=== PATIENT | male | born 1940 | race Caucasian/White ===

== ENCOUNTER 2023-07-02 08:10 | Emergency (ER) | payer MEDICARE, OTHER, SELFPAY ==
[2023-07-02 08:34] VITALS: BP 132/74; PULSE 64; RESP 16; TEMP 36.1; O2SAT 98; BMI 26.3
[2023-07-02 08:59] VITALS: BP 124/79; PULSE 96; RESP 16; O2SAT 95
--- NOTE | 2023-07-02 09:03 | CRLHL7_ITS ---
For Patients: As a result of the Century Cures Act, medical imaging exams and procedure reports are released immediately into your electronic medical record. You may view this report before your referring provider. If you have questions, please contact your health care provider. INDICATION: COUGH HISTORY: Cough. COMPARISON: 01/03/2020. TECHNIQUE: Chest one-view portable. FINDINGS: There is a left subclavian transvenous pacemaker implant. Leads are continuous and stable. The heart size and pulmonary vasculature are normal. There is no acute airspace disease or pneumothorax. The central airway is normal. The osseous structures are intact. IMPRESSION: There is no acute airspace disease or significant change. Dictated by Brian Lobo MD @ 07/02/2023 9:38:23 AM Dictated by: Brian Lobo MD @ 07/02/2023 09:38:29 (Electronically Signed)
--- NOTE | 2023-07-02 09:06 | ED_ITS ---
HPI - General Adult General Chief complaint: Cough Stated complaint: cough, tight chest Time Seen by Provider: 07/02/23 08:21 History of Present Illness HPI narrative: Patient is a 83 white male with Alzheimer's disease, has a pacemaker, and has blood pressure issues per his . He and his were here for dry cough and body aches. Dinesh reports that he has had a runny nose and a cough. His cough is nonproductive. He denies any chest pain or other symptoms. He is not short of breath. His O2 sat is 90-95% on room air. He is afebrile. His does not know his medications all those he ceased states he is on ?many?. Related Data Allergies Allergy/AdvReac Type Severity Reaction Status Date / Time adhesive tape Allergy Blister Verified 07/02/23 09:35 diatrizoate meglumine Allergy angioedema Verified 07/02/23 09:35 venom-wasp Allergy Hives Verified 07/02/23 09:35 Beta-Blockers AdvReac Cough Verified 07/02/23 09:35 (Beta-Adrenergic Bloc digoxin AdvReac bipolar Verified 07/02/23 09:35 donepezil [From Aricept] AdvReac confusion Verified 07/02/23 09:35 lisinopril AdvReac Cough Verified 07/02/23 09:35 losartan [From Cozaar] AdvReac Verified 07/02/23 09:35 terazosin AdvReac Dizziness Verified 07/02/23 09:35 Review of Systems Status of ROS: Reports: 6 or more systems reviewed and unremarkable except as noted in History and below PFSH PFSH Social History Smoking Status: Former smoker How often do you have a drink containing alcohol: never AUDIT-C Alcohol total score: 0 Non-prescribed substance use: denies use Exam Narrative: Exam Narrative: Objective: Vital signs look largely unremarkable and within normal limits He is alert and oriented to person, not to place or time, the patient is very pleasant, noncyanotic HEENT is unremarkable Chest is clear no rales or wheezing Pulses regular cage ectopic beat Extremities good perfusion, neurologic nonfocal Const: Vital Signs, click to edit/add: Vital Signs - 24 hr 07/02/23 08:34 07/02/23 08:59 Temperature 97.0 F L Pulse Rate [Left P ulse Oximeter] 64 96 Respiratory Rate 16 16 Blood Pressure [Ri ght Upper Arm] 132/74 124/79 Pulse Oximetry 98 95 Oxygen Delivery Me thod Room Air Room Air Course Vital Signs Vital signs: Initial Vital Signs Temperature 97.0 F L 07/02/23 08:34 Temperature Source Temporal Artery Scan 07/02/23 08:34 Pulse Rate 64 07/02/23 08:34 Respiratory Rate 16 07/02/23 08:34 Blood Pressure 132/74 07/02/23 08:34 Blood Pressure Mean 93 07/02/23 08:34 Blood Pressure Position Sitting 07/02/23 08:34 Pulse Oximetry 98 07/02/23 08:34 Oxygen Delivery Method Room Air 07/02/23 08:34 Vital Signs Temperature 97.0 F L 07/02/23 08:34 Pulse Rate 64 07/02/23 08:34 Respiratory Rate 16 07/02/23 08:34 Blood Pressure 132/74 07/02/23 08:34 Pulse Oximetry 98 07/02/23 08:34 Oxygen Delivery Method Room Air 07/02/23 08:34 Temperature 97.0 F L 07/02/23 08:34 Pulse Rate 96 07/02/23 08:59 Respiratory Rate 16 07/02/23 08:59 Blood Pressure 124/79 07/02/23 08:59 Pulse Oximetry 95 07/02/23 08:59 Oxygen Delivery Method Room Air 07/02/23 08:59 Medical Decision Making MDM Narrative Medical decision making narrative: 83-year-old male with history of dementia who has a runny nose and cough, similar to his . He will get a COVID/influenza/RSV test. Will get a chest x-ray. Disposition pending findings. He does not appear febrile or toxic or hypoxic at this point. Addendum 9:24 a.m.: The patient has viral studies are negative, his chest x-ray by my read looks unremarkable. I think observation rest in time would be appropriate at this time. Update regular doctor next couple of days, return to ED sooner as needed problems or concerns. Suspect viral some syndrome similar to his and treatment as above Lab Data Labs: Lab Results 07/02/23 Range/Units 08:30 SARS-CoV-2 (PCR) Negative SARS-CoV-2 (Negative) Influenza Type A (PCR) Negative PCR FLU A (Negative) Influenza Type B (PCR) Negative PCR FLU B (Negative) RSV (PCR) Negative PCR RSV (Negative) Discharge Plan Discharge Clinical Impression: Cough Patient Disposition: Home w/ Parent or Adult Condition: Stable Additional Instructions: Light activity, fluids, Tylenol if needed, update regular doctor in couple of days not improving. Activity Level: Light activity Discharge Diet: Regular Follow Up/Referrals: Geeta Manning MD [Primary Care Provider] - Stand Alone Forms: [employer] [facility] Info Instructions
[2023-07-02 09:12] LABS: PCR FLU A Negative PCR FLU A (Negative); PCR FLU B Negative PCR FLU B (Negative); PCR RSV Negative PCR RSV (Negative)
[2023-07-02 09:17] LABS: SARS PCR* Negative SARS-CoV-2 (Negative)
== END 2023-07-02 09:35 | disposition home or self-care (01) ==
PROVIDERS: Emergency Provider Family Medicine; PCP Family Medicine
DX: R05.9 Cough, unspecified (principal)
CPT/HCPCS: 71045; 87631; 99283; 99284

== ENCOUNTER 2023-07-05 12:41 | Emergency (ER) | payer MEDICARE, OTHER, SELFPAY ==
[2023-07-05 12:58] VITALS: BP 104/60; PULSE 98; TEMP 36.2; O2SAT 97; BMI 27.7
--- NOTE | 2023-07-05 14:51 | CRLHL7_ITS ---
For Patients: As a result of the Cures Act, medical imaging exams and procedure reports are released immediately into your electronic medical record. You may view this report before your referring provider. If you have questions, please contact your health care provider. Indication: Cough, COVID infection Technique: Chest 1 view Comparison: Chest x-ray 07/02/2023 Findings/Impression: Cardiovascular and mediastinum: Normal heart size with left-sided pacemaker. Aortic tortuosity with atherosclerotic calcification. Lungs and pleural space: Lungs are clear. No sign of infiltrate or mass. No sign of pleural effusion. No pneumothorax. Bones and soft tissues: No acute findings. Dictated by Agus Grimaldo MD @ 07/05/2023 3:41:19 PM (Electronically Signed)
--- NOTE | 2023-07-05 15:15 | ED.GENADULT ---
HPI - General Adult General Date Seen: 07/05/23 Chief complaint: Cough Stated complaint: evaluation for trouble breathing, covid + Time Seen by Provider: 07/05/23 14:29 Source: patient and family Mode of arrival: ambulatory Limitations: no limitations History of Present Illness HPI narrative: Patient is an 83-year-old male here with his . He has underlying Alzheimer's dementia. He has had a cough for few days, he and his actually were both seconds seen 2 days ago, he had a negative COVID at that time and a negative chest x-ray. Since then cough has worsened and he had a positive COVID today. His was positive for COVID as well and she is feeling improved he has not had a fever, has not had chest pain nor is he felt short of breath, but is very frustrated by the coughing. He is eating and drinking fine. Lives at home with his . He has not smoked for 40+ years. Related Data Previous Rx's Medication Instructions Recorded benzonatate 200 mg capsule 200 mg PO BID PRN cough #10 caps 07/05/23 Allergies Allergy/AdvReac Type Severity Reaction Status Date / Time adhesive tape Allergy Blister Verified 07/02/23 09:35 diatrizoate meglumine Allergy angioedema Verified 07/02/23 09:35 venom-wasp Allergy Hives Verified 07/02/23 09:35 Beta-Blockers AdvReac Cough Verified 07/02/23 09:35 (Beta-Adrenergic Bloc digoxin AdvReac bipolar Verified 07/02/23 09:35 donepezil [From Aricept] AdvReac confusion Verified 07/02/23 09:35 lisinopril AdvReac Cough Verified 07/02/23 09:35 losartan [From Cozaar] AdvReac Verified 07/02/23 09:35 terazosin AdvReac Dizziness Verified 07/02/23 09:35 Review of Systems Status of ROS: Reports: 6 or more systems reviewed and unremarkable except as noted in History and below [facility] Social History Smoking Status: Former smoker How often do you have a drink containing alcohol: never AUDIT-C Alcohol total score: 0 Non-prescribed substance use: denies use service: No Exam Narrative: Exam Narrative: Vital signs as noted above. In general, an alert, nontoxic elderly male. Breathing without difficulty. Head: Normocephalic, atraumatic. Eyes: Pupils are equal reactive. Extraocular movements are full. Conjunctivae are normal. ENT: Mucous membranes are moist. Neck: Supple without lymphadenopathy. Heart: Regular rate and rhythm. No murmur or rub. Lungs: Clear bilaterally. No increased work of breathing, crackles or wheezes. Abdomen: Soft and nontender. No organomegaly. Extremities: Well perfused. No edema. No calf tenderness. Pulses intact. Neurologic: Patient is alert and oriented to person. Speech is fluent. Face is symmetric. Moves all extremities equally. Affect: Normal. Skin: Warm and dry. Well perfused. Const: Vital Signs, click to edit/add: Vital Signs - 24 hr 07/05/23 12:58 07/05/23 15:22 Temperature 97.2 F L Pulse Rate [Pulse Oximeter] 98 60 Respiratory Rate 20 Blood Pressure [Ri ght Forearm] 104/60 158/85 H Pulse Oximetry 97 97 Oxygen Delivery Me thod Room Air Room Air Documenting provider has reviewed patient's vital signs: yes Course Course ED Course: Will repeat a chest x-ray today to evaluate for possible intermittent development of pneumonia, check some basic labs. I am not rechecking a COVID here as it was positive at home. His O2 sats are good, he is not showing any significant difficulty breathing here. Reviewed with them that I probably will not have a quick fix for this symptom of cough with COVID. His is not taking Paxlovid secondary to medication interactions and she says that she has been told that he has medications which preclude Paxlovid as well, although she is not sure what medications he takes. She just says he is on ?a lot. Chest x-ray here is negative by my review, final radiology read is negative. White blood cell count is 7, CRP minimally elevated at 1.4 and metabolic panel looks good. Discussed with them at this time he seems to be having mostly just symptoms of COVID with normal O2 sats. Would anticipate these to continue for week or two, but if he is having worsening difficulties with weakness or shortness of breath, return to the emergency department at any time. Vital Signs Vital signs: Initial Vital Signs Temperature 97.2 F L 07/05/23 12:58 Temperature Source Temporal Artery Scan 07/05/23 12:58 Pulse Rate 98 07/05/23 12:58 Pulse Rhythm Regular 07/05/23 12:58 Blood Pressure 104/60 07/05/23 12:58 Blood Pressure Mean 74 07/05/23 12:58 Blood Pressure Position Sitting 07/05/23 12:58 Pulse Oximetry 97 07/05/23 12:58 Oxygen Delivery Method Room Air 07/05/23 12:58 Vital Signs Temperature 97.2 F L 07/05/23 12:58 Pulse Rate 98 07/05/23 12:58 Blood Pressure 104/60 07/05/23 12:58 Pulse Oximetry 97 07/05/23 12:58 Oxygen Delivery Method Room Air 07/05/23 12:58 Temperature 97.2 F L 07/05/23 12:58 Pulse Rate 60 07/05/23 15:22 Respiratory Rate 20 07/05/23 15:22 Blood Pressure 158/85 H 07/05/23 15:22 Pulse Oximetry 97 07/05/23 15:22 Oxygen Delivery Method Room Air 07/05/23 15:22 Medical Decision Making Lab Data Labs: Lab Results 07/05/23 Range/Units 15:16 WBC 7.70 (4.50-11.00) K/uL RBC 4.22 L (4.30-5.90) m/uL Hgb 14.0 (13.5-17.5) gm/dL Hct 42.2 (37.0-53.0) % MCV 100 (80-100) fL MCH 33 (26-34) pg MCHC 33 (32-36) gm/dL RDW Coeff of Juliann 12.9 (11.5-15.5) % Plt Count 193 (140-440) K/uL Neut % (Auto) 74.3 H (42.0-72.0) % Lymph % (Auto) 12.2 L (20-44) % Garza % (Auto) 11.8 H (0.0-11.0) % Eos % (Auto) 1.3 (0.0-7.0) % Baso % (Auto) 0.1 (0.0-3.0) % Neut # (Auto) 5.70 (1.7-7.0) K/uL Lymph # (Auto) 0.90 (0.90-2.90) K/uL Garza # (Auto) 0.90 (0.00-0.90) K/UL Eos # (Auto) 0.10 (0.00-0.50) K/uL Baso # (Auto) 0.01 (0.00-0.30) K/uL Abs Immat Gran (auto) 0.02 (0.00-0.30) K/uL Imm/Tot Granulo (auto) 0.3 % Sodium 136 (135-149) mmol/L Potassium 4.2 (3.6-5.1) mmol/L Chloride 103 (96-114) mmol/L Carbon Dioxide 27 (20-32) mmol/L Anion Gap 6 L (7-15) mEq/L BUN 23 (7-30) mg/dL Creatinine 1.4 (0.5-1.5) mg/dL Estimated Creat Clear 43.60 Estimated GFR 49 ml/min Glucose 97 (60-115) mg/dL Calcium 9.4 (8.4-10.6) mg/dL C-Reactive Protein 1.4 H (0.5-1.0) mg/dL Discharge Plan Discharge Clinical Impression: COVID-19 Patient Disposition: Home, Self-Care Condition: Stable Instructions: COVID-19 (Coronavirus Disease 2019) (ED) Additional Instructions: Lloyd Dominguez if you like. COVID symptoms of cough, fatigue, aches, headache etcetera may last for up to a couple of weeks. You should gradually improved thereafter and if not please follow up with primary care. For worsening difficulty breathing or other acute changes, return to the emergency department. Prescriptions: New benzonatate 200 mg capsule 200 mg PO BID PRN (Reason: cough) Qty: 10 0RF Follow Up/Referrals: Geeta Manning MD [Primary Care Provider] - Stand Alone Forms: [employer] Info Instructions
[2023-07-05 15:22] VITALS: BP 158/85; PULSE 60; RESP 20; O2SAT 97
[2023-07-05 15:26] LABS: Basophils Absolute Auto 0.01 K/uL (0.00-0.30); Basophils Percent Auto 0.1 % (0.0-3.0); Eosinophils Percent Auto 1.3 % (0.0-7.0); Hematocrit 42.2 % (37.0-53.0); Immature Granulocytes Abs Auto 0.02 K/uL (0.00-0.30); Immature Granulocytes Pct Auto 0.3 %; Lymphocytes Percent Auto 12.2 % (20-44); Mean Corpuscular HGB Conc 33 gm/dL (32-36); Mean Corpuscular Hemoglobin 33 pg (26-34); Mean Corpuscular Volume 100 fL (80-100); Monocytes Percent Auto 11.8 % (0.0-11.0); Neutrophils Percent Auto 74.3 % (42.0-72.0); Platelet Count* 193 K/uL (140-440); RDW Coefficient of Variation % 12.9 % (11.5-15.5); Red Blood Count 4.22 m/uL (4.30-5.90)
[2023-07-05 15:29] LABS: Chloride* 103 mmol/L (96-114); Potassium* 4.2 mmol/L (3.6-5.1); Sodium* 136 mmol/L (135-149)
[2023-07-05 15:32] LABS: Creatinine* 1.4 mg/dL (0.5-1.5); Estimated Glomerular Filt Rate 49 ml/min; Slide Review Reflex No
[2023-07-05 15:33] LABS: Anion Gap 6 mEq/L (7-15); Blood Urea Nitrogen* 23 mg/dL (7-30); Calcium* 9.4 mg/dL (8.4-10.6); Carbon Dioxide* 27 mmol/L (20-32); Glucose* 97 mg/dL (60-115)
[2023-07-05 15:36] LABS: C Reactive Protein* 1.4 mg/dL (0.5-1.0)
== END 2023-07-05 16:24 | disposition home or self-care (01) ==
PROVIDERS: Emergency Provider Emergency Medicine; PCP Family Medicine
DX: U07.1 COVID-19 (principal)
CPT/HCPCS: 36415; 71045; 80048; 85025; 86140; 99283; 99284

== ENCOUNTER 2023-11-28 10:15 | Emergency (ER) | payer MEDICARE, OTHER, SELFPAY ==
[2023-11-28 10:18] VITALS: BP 115/71; PULSE 98; RESP 18; TEMP 36.2; O2SAT 97; BMI 28.7
--- NOTE | 2023-11-28 10:43 | US_ITS ---
Patient: [facility] Facility:?[facility] Patient ID:?[id number] Site Patient ID:?[id number]. Site :?[id number] Study:?US-Extremity Left LEV-11/28/2023 12:15:47 PM Ordering Physician:BUSTER TAVERAS Final Report: INDICATION: Leg pain and swelling. TECHNIQUE: Ultrasound venous duplex lower left extremity. Compression venous exam was performed using lambert-scale, color Doppler, and spectral Doppler analysis. COMPARISON: None. FINDINGS: Deep veins: Sonographic imaging demonstrates the left common femoral, deep femoral, superficial femoral, popliteal, posterior tibial and the contralateral right common femoral veins to be fully compressible with normal color Doppler blood flow. Superficial veins: Superficial thrombophlebitis involving a short-segment of the greater saphenous vein, but extending throughout multiple varicosities from the mid thigh to the calf. No popliteal cyst. IMPRESSION: Superficial thrombophlebitis involving a short-segment of the greater saphenous vein, but extending throughout multiple varicosities from the mid thigh to the calf. No left lower extremity DVT. Dictated by Joe Huang MD @ 11/28/2023 12:22:55 PM Signed by:?Joe Huang MD @11/28/2023 12:22:55 PM (Electronic Signature)
--- NOTE | 2023-11-28 10:48 | ED.GENADULT ---
HPI - General Adult General Chief complaint: Lower Extremity Swelling Stated complaint: left ankle and foot swelling Time Seen by Provider: 11/28/23 10:34 Source: patient, family, RN notes reviewed and old records reviewed Mode of arrival: ambulatory Limitations: no limitations History of Present Illness HPI narrative: Patient is an 83-year-old male here with his for evaluation of some swelling of the left ankle. His says she noticed it on Tuesday, 3 days ago. He has not complained about it. Does have a little bit of underlying dementia. No injuries, no fevers, he is walking on it without difficulty. He is on amlodipine but she believes he has been on this for quite some time. No breathing difficulties or chest pain. Related Data Home Medications Medication Instructions Recorded Confirmed acetaminophen 650 mg 650 mg PO DAILY 11/28/23 11/28/23 tablet,extended release amlodipine 5 mg tablet 5 mg PO DAILY 11/28/23 11/28/23 aspirin 325 mg tablet,delayed 325 mg PO DAILY 11/28/23 11/28/23 release bupropion HCl 300 mg 24 hr tablet, 300 mg PO DAILY 11/28/23 11/28/23 extended release cholecalciferol (vitamin D3) 50 100 mcg PO DAILY 11/28/23 11/28/23 mcg (2,000 unit) capsule dipyridamole 50 mg tablet 50 mg PO BID 11/28/23 11/28/23 escitalopram oxalate 20 mg tablet 20 mg PO QAM 11/28/23 11/28/23 famotidine 20 mg tablet 20 mg PO BID 11/28/23 11/28/23 gabapentin 300 mg capsule 300 mg PO 11/28/23 memantine 10 mg tablet 10 mg PO BID 11/28/23 11/28/23 montelukast 10 mg tablet 10 mg PO QPM 11/28/23 11/28/23 omeprazole 40 mg capsule,delayed 40 mg PO DAILY 11/28/23 11/28/23 release primidone 50 mg tablet 50 mg PO QPM 11/28/23 11/28/23 simvastatin 40 mg tablet 40 mg PO QPM 11/28/23 11/28/23 tamsulosin 0.4 mg capsule 0.8 mg PO DAILY 11/28/23 11/28/23 Previous Rx's Medication Instructions Recorded benzonatate 200 mg capsule 200 mg PO BID PRN cough #10 caps 07/05/23 Allergies Allergy/AdvReac Type Severity Reaction Status Date / Time adhesive tape Allergy Blister Verified 11/28/23 10:24 diatrizoate meglumine Allergy angioedema Verified 11/28/23 10:24 venom-wasp Allergy Hives Verified 11/28/23 10:24 Beta-Blockers AdvReac Cough Verified 11/28/23 10:24 (Beta-Adrenergic Bloc digoxin AdvReac bipolar Verified 11/28/23 10:24 donepezil [From Aricept] AdvReac confusion Verified 11/28/23 10:24 lisinopril AdvReac Cough Verified 11/28/23 10:24 losartan [From Cozaar] AdvReac Verified 11/28/23 10:24 terazosin AdvReac Dizziness Verified 11/28/23 10:24 Review of Systems Status of ROS: Reports: 6 or more systems reviewed and unremarkable except as noted in History and below PFSH PFS Social History Smoking Status: Former smoker How often do you have a drink containing alcohol: never How often do you have six or more drinks on one occasion: Never AUDIT-C Alcohol total score: 0 Non-prescribed substance use: denies use service: No Exam Narrative: Exam Narrative: Vital signs reviewed In general, alert, well-appearing elderly male. Heart: Regular rate and rhythm. Lungs: Clear to auscultation. Extremities: The right lower extremity is normal. On the left, he has a little bit of swelling around the ankle. There is no erythema or warmth. He has full range of motion of the ankle joint without pain. 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 No calf tenderness or swelling. Const: Vital Signs, click to edit/add: Vital Signs - 24 hr 11/28/23 10:18 Temperature 97.2 F L Pulse Rate [Pulse Oximeter] 98 Respiratory Rate 18 Blood Pressure [Ri ght Upper Arm] 115/71 Pulse Oximetry 97 Oxygen Delivery Me thod Room Air Documenting provider has reviewed patient's vital signs: yes Course Course ED Course: Patient presents with mild swelling of the left ankle to a small degree into the dorsum of the foot without history of injury or pain. No erythema or warmth to suggest cellulitis or arthritis. Evaluation here showed normal lab work, ultrasound shows superficial thrombophlebitis involving a short segment of the GSV at the ankle, they note superficial clot in multiple varicosities from mid thigh to the calf. There is no significant proximity noted to the deep system. We discussed conservative measures for this, elevation, compression, Tylenol if needed, ice and/or heat. Discussed reasons to return such as significant increased swelling throughout the leg, or development of pain or swelling more proximally. Follow-up with primary care if needed. Vital Signs Vital signs: Initial Vital Signs Temperature 97.2 F L 11/28/23 10:18 Temperature Source Temporal Artery Scan 11/28/23 10:18 Pulse Rate 98 11/28/23 10:18 Respiratory Rate 18 11/28/23 10:18 Blood Pressure 115/71 11/28/23 10:18 Blood Pressure Mean 85 11/28/23 10:18 Blood Pressure Position Sitting 11/28/23 10:18 Pulse Oximetry 97 11/28/23 10:18 Oxygen Delivery Method Room Air 11/28/23 10:18 Vital Signs Temperature 97.2 F L 11/28/23 10:18 Pulse Rate 98 11/28/23 10:18 Respiratory Rate 18 11/28/23 10:18 Blood Pressure 115/71 11/28/23 10:18 Pulse Oximetry 97 11/28/23 10:18 Oxygen Delivery Method Room Air 11/28/23 10:18 Temperature 97.2 F L 11/28/23 10:18 Pulse Rate 98 11/28/23 10:18 Respiratory Rate 18 11/28/23 10:18 Blood Pressure 115/71 11/28/23 10:18 Pulse Oximetry 97 11/28/23 10:18 Oxygen Delivery Method Room Air 11/28/23 10:18 Medical Decision Making Lab Data Labs: Lab Results 11/28/23 Range/Units 11:09 WBC 5.58 (4.50-11.00) K/uL RBC 4.16 L (4.30-5.90) m/uL Hgb 13.8 (13.5-17.5) gm/dL Hct 42.0 (37.0-53.0) % MCV 101 H (80-100) fL MCH 33 (26-34) pg MCHC 33 (32-36) gm/dL RDW Coeff of Juliann 12.7 (11.5-15.5) % Plt Count 223 (140-440) K/uL Neut % (Auto) 69.5 (42.0-72.0) % Lymph % (Auto) 21.3 (20-44) % [place] % (Auto) 6.3 (0.0-11.0) % Eos % (Auto) 2.3 (0.0-7.0) % Baso % (Auto) 0.2 (0.0-3.0) % Neut # (Auto) 3.88 (1.7-7.0) K/uL Lymph # (Auto) 1.19 (0.90-2.90) K/uL [place] # (Auto) 0.40 (0.00-0.90) K/UL Eos # (Auto) 0.13 (0.00-0.50) K/uL Baso # (Auto) 0.01 (0.00-0.30) K/uL Abs Immat Gran (auto) 0.02 (0.00-0.30) K/uL Imm/Tot Granulo (auto) 0.4 % Sodium 138 (135-149) mmol/L Potassium 4.0 (3.6-5.1) mmol/L Chloride 107 (96-114) mmol/L Carbon Dioxide 26 (20-32) mmol/L Anion Gap 5 L (7-15) mEq/L BUN 26 (7-30) mg/dL Creatinine 1.3 (0.5-1.5) mg/dL Estimated Creat Clear 42.90 Estimated GFR 54 ml/min Glucose 138 H (60-115) mg/dL Calcium 9.5 (8.4-10.6) mg/dL Total Bilirubin 0.4 (0.1-1.5) mg/dL Direct Bilirubin 0.1 (0.0-0.5) mg/dL AST 25 (12-35) U/L ALT 12 (4-50) U/L Alkaline Phosphatase 46 (40-150) U/L NT-Pro-B Natriuret Pep 205 pg/mL Total Protein 6.6 (6.0-8.3) g/dL Albumin 3.8 (3.3-5.0) g/dL Discharge Plan Discharge Clinical Impression: Superficial thrombophlebitis Patient Disposition: Home, Self-Care Condition: Stable Instructions: Superficial Thrombophlebitis (ED) Additional Instructions: Okay to use Tylenol if needed for discomfort. Warm or cool compresses may be helpful. Compression with a compression sock is recommended if able. Elevate when possible. For significant increased swelling, redness, pain etcetera, should be seen again. Prescriptions: No Action benzonatate 200 mg capsule 200 mg PO BID PRN (Reason: cough) Qty: 10 0RF acetaminophen 650 mg tablet extended release 650 mg PO DAILY famotidine 20 mg tablet 20 mg PO BID aspirin 325 mg tablet,delayed release (DR/EC) 325 mg PO DAILY gabapentin 300 mg capsule 300 mg PO Patient Comments: one capsule y mouth every morning and noon, 2 caps at HS dipyridamole 50 mg tablet 50 mg PO BID escitalopram oxalate 20 mg tablet 20 mg PO QAM bupropion HCl 300 mg tablet extended release 24 hr 300 mg PO DAILY memantine 10 mg tablet 10 mg PO BID cholecalciferol (vitamin D3) 50 mcg (2,000 unit) capsule 100 mcg PO DAILY primidone 50 mg tablet 50 mg PO QPM amlodipine 5 mg tablet 5 mg PO DAILY omeprazole 40 mg capsule,delayed release(DR/EC) 40 mg PO DAILY simvastatin 40 mg tablet 40 mg PO QPM tamsulosin 0.4 mg capsule 0.8 mg PO DAILY montelukast 10 mg tablet 10 mg PO QPM Follow Up/Referrals: Geeta Manning MD [Primary Care Provider] - Stand Alone Forms: [employer] Info Instructions
[2023-11-28 11:18] LABS: Basophils Absolute Auto 0.01 K/uL (0.00-0.30); Basophils Percent Auto 0.2 % (0.0-3.0); Eosinophils Absolute Auto 0.13 K/uL (0.00-0.50); Eosinophils Percent Auto 2.3 % (0.0-7.0); Hemoglobin* 13.8 gm/dL (13.5-17.5); Immature Granulocytes Abs Auto 0.02 K/uL (0.00-0.30); Immature Granulocytes Pct Auto 0.4 %; Lymphocytes Absolute Auto 1.19 K/uL (0.90-2.90); Lymphocytes Percent Auto 21.3 % (20-44); Mean Corpuscular HGB Conc 33 gm/dL (32-36); Mean Corpuscular Hemoglobin 33 pg (26-34); Mean Corpuscular Volume 101 fL (80-100); Monocytes Percent Auto 6.3 % (0.0-11.0); Neutrophils Absolute Auto 3.88 K/uL (1.7-7.0); Neutrophils Percent Auto 69.5 % (42.0-72.0); Platelet Count* 223 K/uL (140-440); RDW Coefficient of Variation % 12.7 % (11.5-15.5); Red Blood Count 4.16 m/uL (4.30-5.90); White Blood Count* 5.58 K/uL (4.50-11.00)
[2023-11-28 11:22] LABS: Slide Review Reflex No
[2023-11-28 11:40] LABS: Albumin* 3.8 g/dL (3.3-5.0); Chloride* 107 mmol/L (96-114); Sodium* 138 mmol/L (135-149)
[2023-11-28 11:42] LABS: Anion Gap 5 mEq/L (7-15); Carbon Dioxide* 26 mmol/L (20-32); Creatinine* 1.3 mg/dL (0.5-1.5); Estimated Glomerular Filt Rate 54 ml/min
[2023-11-28 11:43] LABS: Alanine Aminotransferase* 12 U/L (4-50); Alkaline Phosphatase* 46 U/L (40-150); Aspartate Amino Transferase* 25 U/L (12-35); Bilirubin Direct* 0.1 mg/dL (0.0-0.5); Bilirubin Total* 0.4 mg/dL (0.1-1.5); Blood Urea Nitrogen* 26 mg/dL (7-30); Calcium* 9.5 mg/dL (8.4-10.6); Glucose* 138 mg/dL (60-115); Total Protein* 6.6 g/dL (6.0-8.3)
[2023-11-28 11:56] LABS: NT Pro B Type NatriureticPept* 205 pg/mL
== END 2023-11-28 12:27 | disposition home or self-care (01) ==
PROVIDERS: Emergency Provider Emergency Medicine; PCP Family Medicine
DX: I80.03 Phlebitis and thrombophlebitis of superficial vessels of lower extremities, bilateral (principal)
CPT/HCPCS: 36415; 80048; 80076; 83880; 85025; 93971; 99284

== ENCOUNTER 2024-01-19 09:05 | Outpatient (CLI) | payer MEDICARE, OTHER, SELFPAY | END 2024-01-19 09:06 | disposition home or self-care (01) | LOC: AMB 01-24 14:03 | PROVIDERS: PCP Family Medicine; Visit Provider Family Medicine | DX: S09.90XA Unspecified injury of head, initial encounter (principal); S19.9XXA Unspecified injury of neck, initial encounter; W16.212A Fall in (into) filled bathtub causing other injury, initial encounter; Y93.E1 Activity, personal bathing and showering; Y92.031 Bathroom in apartment as the place of occurrence of the external cause | CPT/HCPCS: A0425; A0427 ==

== ENCOUNTER 2024-01-19 09:37 | Emergency (ER) | payer MEDICARE, OTHER, SELFPAY ==
[2024-01-19] VITALS (11 sets, daily range): BP systolic 142–165; BP diastolic 83–92; PULSE 60–64; RESP 18; TEMP 36.5; O2SAT 95–97; BMI 30.9
--- NOTE | 2024-01-19 09:40 | ED.GENADULT ---
HPI - General Adult General Time Seen by Provider: 09:40 Date Seen: 01/19/24 Chief complaint: Neck Injury/Pain Stated complaint: Fall Time Seen by Provider: 01/19/24 09:39 Source: patient and EMS Mode of arrival: EMS Limitations: other (Has dementia but is reported to be at his baseline per at seen from EMS.) History of Present Illness HPI narrative: This 83-year-old male is brought in by EMS for complaint of neck pain after a fall. Patient has baseline dementia, resides with his across the street at [facility]. He was showering, his heard him fall, he was on his hands and knees when she went in to him. There reportedly is no loss of consciousness. He was at his baseline mental status per his . He does not know time and current events but was grounded to questions that he would normally know such as the son's name, where he was that, his 's name. EMS did have to alter their questioning to ensure he was at his baseline mental status. His felt that he was. He denies any chest pain, no shortness of breath. He feels he slipped in the shower. On the scene, was complaining of neck pain, neck pain was his only complaint. He denies any pain going into his arms at this time. He did have a superficial abrasion on the upper forehead. EMS applied cervical spine immobilization, did start an IV and give him 50 mcg IV fentanyl. His blood sugar was 115. His is not here but is reportedly coming. Patient at this time is denying any discomfort, feels the fentanyl did help. Patient is noted to have a pacemaker. Related Data Home Medications ?Medication ?Instructions ?Recorded ?Confirmed acetaminophen 650 mg 650 mg PO DAILY 11/28/23 01/19/24 tablet,extended release amlodipine 5 mg tablet 5 mg PO DAILY 11/28/23 01/19/24 aspirin 325 mg tablet,delayed 325 mg PO DAILY 11/28/23 01/19/24 release bupropion HCl 300 mg 24 hr tablet, 300 mg PO DAILY 11/28/23 01/19/24 extended release cholecalciferol (vitamin D3) 50 100 mcg PO DAILY 11/28/23 01/19/24 mcg (2,000 unit) capsule dipyridamole 50 mg tablet 50 mg PO BID 11/28/23 01/19/24 escitalopram oxalate 20 mg tablet 20 mg PO QAM 11/28/23 01/19/24 famotidine 20 mg tablet 20 mg PO BID 11/28/23 01/19/24 gabapentin 300 mg capsule 300 mg PO 11/28/23 memantine 10 mg tablet 10 mg PO BID 11/28/23 01/19/24 montelukast 10 mg tablet 10 mg PO QPM 11/28/23 01/19/24 omeprazole 40 mg capsule,delayed 40 mg PO DAILY 11/28/23 01/19/24 release primidone 50 mg tablet 50 mg PO QPM 11/28/23 01/19/24 simvastatin 40 mg tablet 40 mg PO QPM 11/28/23 01/19/24 tamsulosin 0.4 mg capsule 0.8 mg PO DAILY 11/28/23 01/19/24 Previous Rx's ?Medication ?Instructions ?Recorded benzonatate 200 mg capsule 200 mg PO BID PRN cough #10 caps 07/05/23 Allergies Allergy/AdvReac Type Severity Reaction Status Date / Time adhesive tape Allergy Blister Verified 11/28/23 10:24 diatrizoate meglumine Allergy angioedema Verified 11/28/23 10:24 venom-wasp Allergy Hives Verified 11/28/23 10:24 Beta-Blockers AdvReac Cough Verified 11/28/23 10:24 (Beta-Adrenergic Bloc digoxin AdvReac bipolar Verified 11/28/23 10:24 donepezil [From Aricept] AdvReac confusion Verified 11/28/23 10:24 lisinopril AdvReac Cough Verified 11/28/23 10:24 losartan [From Cozaar] AdvReac Verified 11/28/23 10:24 terazosin AdvReac Dizziness Verified 11/28/23 10:24 Review of Systems Status of ROS: Reports: 6 or more systems reviewed and unremarkable except as noted in History and below [facility] Social History Smoking Status: Former smoker How often do you have a drink containing alcohol: never How often do you have six or more drinks on one occasion: Never AUDIT-C Alcohol total score: 0 Non-prescribed substance use: denies use service: No Exam Const: Vital Signs, click to edit/add: Vital Signs - 24 hr 01/19/24 09:41 01/19/24 10:12 01/19/24 10:13 Temperature 97.7 F Pulse Rate 64 Pulse Rate [Pulse Oximeter] 64 Respiratory Rate 18 Blood Pressure Blood Pressure [Le ft Upper Arm] 165/92 H Pulse Oximetry 95 95 95 Oxygen Delivery Me thod Room Air 01/19/24 10:19 01/19/24 10:30 01/19/24 10:32 Temperature Pulse Rate 61 60 60 Pulse Rate [Pulse Oximeter] Respiratory Rate Blood Pressure 155/85 H 161/89 H Blood Pressure [Le ft Upper Arm] Pulse Oximetry 97 95 96 Oxygen Delivery Me thod This patient is alert, interactive, no apparent distress. He is conversive, speech is normal. Pupils are smaller but equal, symmetric, conjugate gaze, sclera clear. He has small little abrasion or bruising developing over the bridge of his nose, no bleeding from the nares, no drainage from the nares, no step-off or complaint of pain when I palpate the nose. Face is otherwise atraumatic. Cannot see fully into his mouth at this time due to the C-collar being on but anterior dentition look normal, lips are normal. He has a central upper superficial abraded area on the top of his forehead. This is not actively bleeding and is very superficial. There is no step-off for swelling in this area. External ears normal, no drainage. When I do palpate his cervical spine through the back of the collar, does complain of pain more to the left paraspinal area on the mid to lower cervical spine. Thus, C-collar was left intact. No pain over clavicles or shoulders, can shrug shoulders. Can feel the pacemaker in his left chest wall. CV regular rate and rhythm. Lungs are clear, no wheezing or crackles. Abdomen is soft, no rebound or guarding, no organomegaly. Strength is 5/5 and symmetric in his upper extremities, note no traumatic changes of his arms or legs. Smallest superficial abraded area about dime-size overlying the right patellar, no knee joint point if you. Feet do seem to have some swelling. Neurovascular seems to be intact throughout his extremities at this time. Do note a little resting tremor in both of his hands, very mild. Documenting provider has reviewed patient's vital signs: yes Course Course ED Course: Will obtain imaging of his head and cervical spine to rule out acute traumatic change. Will have him on pulse oximetry and cardiac monitoring. Will confirm rhythm with EKG, obtain some baseline labs. Sounds like he simply slipped in the shower and fell. Will review the situation with his when she gets here as well. Reevaluation(s) Time of Reevaluation #1: 10:44 Reevaluation #1: Reviewed negative CT imaging for traumatic change. C-collar was removed. He has some stiffness but no concerning pain on range of motion. Still no radiculopathic features with pain into either arm. Did confirm with his who is now here that he slipped in the shower. Per his , there are bars and appropriate safety measures in the bathroom. Will obtain Tylenol for him, are awaiting some of his labs. Time of Reevaluation #2: 11:21 Reevaluation #2: Reviewed normal labs. Patient is feeling better, no increased complaints of pain, no new complaints. He will discharge to home with his . Vital Signs Vital signs: Initial Vital Signs Temperature 97.7 F 01/19/24 09:41 Temperature Source Temporal Artery Scan 01/19/24 09:41 Pulse Rate 64 01/19/24 09:41 Respiratory Rate 18 01/19/24 09:41 Blood Pressure 165/92 H 01/19/24 09:41 Blood Pressure Mean 116 H 01/19/24 09:41 Blood Pressure Position Supine 01/19/24 09:41 Pulse Oximetry 95 01/19/24 09:41 Oxygen Delivery Method Room Air 01/19/24 09:41 Vital Signs Temperature 97.7 F 01/19/24 09:41 Pulse Rate 64 01/19/24 09:41 Respiratory Rate 18 01/19/24 09:41 Blood Pressure 165/92 H 01/19/24 09:41 Pulse Oximetry 95 01/19/24 09:41 Oxygen Delivery Method Room Air 01/19/24 09:41 Temperature 97.7 F 01/19/24 09:41 Pulse Rate 60 01/19/24 10:32 Respiratory Rate 18 01/19/24 09:41 Blood Pressure 161/89 H 01/19/24 10:32 Pulse Oximetry 96 01/19/24 10:32 Oxygen Delivery Method Room Air 01/19/24 09:41 Medications Administered Medications: Discontinued Medications Generic Name Dose Route Start Last Admin Trade Name Tomas PRN Reason Stop Dose Admin Acetaminophen 1,000 mg 01/19/24 10:46 01/19/24 10:54 Acetaminophen 500 Mg Tablet PO 01/19/24 10:47 1,000 mg ONCE ONE Administration Medical Decision Making Lab Data Lab results reviewed: Yes I reviewed the patient's lab results Labs: Lab Results 01/19/24 Range/Units 10:12 WBC 5.61 (4.50-11.00) K/uL RBC 4.38 (4.30-5.90) m/uL Hgb 14.4 (13.5-17.5) gm/dL Hct 44.1 (37.0-53.0) % MCV 101 H (80-100) fL MCH 33 (26-34) pg MCHC 33 (32-36) gm/dL Plt Count 217 (140-440) K/uL Neut % (Auto) 68.3 (42.0-72.0) % Lymph % (Auto) 21.2 (20-44) % [place] % (Auto) 6.8 (0.0-11.0) % Eos % (Auto) 2.9 (0.0-7.0) % Baso % (Auto) 0.4 (0.0-3.0) % Neut # (Auto) 3.80 (1.7-7.0) K/uL Lymph # (Auto) 1.20 (0.90-2.90) K/uL [place] # (Auto) 0.40 (0.00-0.90) K/UL Eos # (Auto) 0.20 (0.00-0.50) K/uL Baso # (Auto) 0.00 (0.00-0.30) K/uL Abs Immat Gran (auto) 0.00 (0.00-0.30) K/uL Imm/Tot Granulo (auto) 0.4 % Sodium 139 (135-149) mmol/L Potassium 4.3 (3.6-5.1) mmol/L Chloride 109 (96-114) mmol/L Carbon Dioxide 25 (20-32) mmol/L Anion Gap 5 L (7-15) mEq/L BUN 30 (7-30) mg/dL Creatinine 1.2 (0.5-1.5) mg/dL Estimated Creat Clear 43.54 Estimated GFR 59 ml/min Glucose 91 (60-115) mg/dL Lactate 0.8 (0.5-1.9) mmol/L Calcium 9.4 (8.4-10.6) mg/dL Total Bilirubin 0.8 (0.1-1.5) mg/dL AST 30 (12-35) U/L ALT 12 (4-50) U/L Alkaline Phosphatase 45 (40-150) U/L Troponin I 0.02 (0.01-0.04) ng/mL NT-Pro-B Natriuret Pep 394 pg/mL Total Protein 7.2 (6.0-8.3) g/dL Albumin 4.3 (3.3-5.0) g/dL Imaging Data CT scan - head: Attestation: I have reviewed the pertinent imaging results. Radiologist's impression: Patient: [facility] Facility:?[facility] Patient ID:?[id number] Site Patient ID:?[id number]. Site :?[id number] Study:?CT-Head WITHOUT-01/19/2024 10:10:47 AM Ordering Physician:?Paula Stanton Final Report: Indication: Fall. Technique: Noncontrast CT of head was performed. Comparison: None available. Findings: Brain parenchyma: Normal lambert-white matter differentiation. Mild prominence of the convexity sulci and periventricular white matter hypodensities in keeping with chronic microvascular change and age related volume loss. No acute intraparenchymal hemorrhage. No mass effect or midline shift. Atherosclerotic intracranial calcifications. Extra-axial spaces: No extra-axial collection. Ventricular system: Unremarkable for age. Paranasal sinuses and mastoid air cells: Polyps versus mucous retention cysts within the maxillary sinuses. Otherwise clear. Orbits: Unremarkable. Bones: No calvarial fracture. Impression: 1. No acute intracranial abnormality identified. 2. Mild cerebral volume loss and findings suggestive of chronic small vessel ischemic change. Please note that all CT scans at this facility use dose modulation, iterative reconstruction, and/or weight-based dosing when appropriate to reduce radiation dose to as low as reasonably achievable. Dictated by Enma Gilmore MD @ 01/19/2024 10:21:14 AM (Electronic Signature) CT cervical spine: Attestation: I have reviewed the pertinent imaging results. Radiologist's impression: Patient: [facility] Facility:?[facility] Patient ID:?[id number] Site Patient ID:?[id number]. Site :?[id number] Study:?CT-Spine Cervical -01/19/2024 10:11:03 AM Ordering Physician:Damion Stanton Final Report: INDICATION: Trauma. TECHNIQUE: CT of the cervical spine without contrast. COMPARISON: None available. FINDINGS: Vertebral alignment: Straightening of the cervical lordosis without subluxation. Vertebrae: Vertebral body heights are maintained. No displaced fracture given limitations of osseous demineralization. Multilevel degenerative disc disease and facet arthropathy, which is most pronounced and severe at C5-C6. Extraspinal findings: Atherosclerotic carotid artery calcifications and vertebral artery calcifications. Posterior fossa is unremarkable. IMPRESSION: 1. No acute traumatic abnormality identified in the cervical spine. 2. Multilevel cervical spondylosis. Please note that all CT scans at this facility use dose modulation, iterative reconstruction, and/or weight-based dosing when appropriate to reduce radiation dose to as low as reasonably achievable. Dictated by Enma Gilmore MD @ 01/19/2024 10:24:53 AM (Electronic Signature) ECG Data Attestation: I personally reviewed and interpreted this ECG as follows: (Paced rhythm at 62 beats per minute.) Discharge Plan Discharge Clinical Impression: Acute neck pain Abrasion of head Qualifiers: Encounter type: initial encounter Qualified Code(s): S00.91XA - Abrasion of unspecified part of head, initial encounter Fall Qualifiers: Encounter type: initial encounter Qualified Code(s): W19.XXXA - Unspecified fall, initial encounter Patient Disposition: Home w/ Parent or Adult Condition: Stable Instructions: Fall Prevention for Older Adults (ED), Abrasion (ED), Neck Pain (ED) Additional Instructions: Tylenol 1000 mg up to 3 times a day as needed for pain. Can try ice or heat to his neck, use which makes him feel better if he has ongoing neck stiffness. Can use bacitracin to the abrasion on his head until healed. Can apply a small amount of bacitracin 3 to 4 times a day. If further concerns or ongoing complaints, follow up with primary care provider in clinic. Activity Level: Activity as Tolerated Prescriptions: No Action benzonatate 200 mg capsule 200 mg PO BID PRN (Reason: cough) Qty: 10 0RF acetaminophen 650 mg tablet extended release 650 mg PO DAILY famotidine 20 mg tablet 20 mg PO BID aspirin 325 mg tablet,delayed release (DR/EC) 325 mg PO DAILY gabapentin 300 mg capsule 300 mg PO Patient Comments: one capsule y mouth every morning and noon, 2 caps at HS dipyridamole 50 mg tablet 50 mg PO BID escitalopram oxalate 20 mg tablet 20 mg PO QAM bupropion HCl 300 mg tablet extended release 24 hr 300 mg PO DAILY memantine 10 mg tablet 10 mg PO BID cholecalciferol (vitamin D3) 50 mcg (2,000 unit) capsule 100 mcg PO DAILY primidone 50 mg tablet 50 mg PO QPM amlodipine 5 mg tablet 5 mg PO DAILY omeprazole 40 mg capsule,delayed release(DR/EC) 40 mg PO DAILY simvastatin 40 mg tablet 40 mg PO QPM tamsulosin 0.4 mg capsule 0.8 mg PO DAILY montelukast 10 mg tablet 10 mg PO QPM Follow Up/Referrals: Geeta Manning MD [Primary Care Provider] - Stand Alone Forms: [employer] Info Instructions
--- NOTE | 2024-01-19 09:41 | CRLHL7_ITS ---
For Patients: As a result of the Century Cures Act, medical imaging exams and procedure reports are released immediately into your electronic medical record. You may view this report before your referring provider. If you have questions, please contact your health care provider. Indication: Fall. Technique: Noncontrast CT of head was performed. Comparison: None available. Findings: Brain parenchyma: Normal lambert-white matter differentiation. Mild prominence of the convexity sulci and periventricular white matter hypodensities in keeping with chronic microvascular change and age related volume loss. No acute intraparenchymal hemorrhage. No mass effect or midline shift. Atherosclerotic intracranial calcifications. Extra-axial spaces: No extra-axial collection. Ventricular system: Unremarkable for age. Paranasal sinuses and mastoid air cells: Polyps versus mucous retention cysts within the maxillary sinuses. Otherwise clear. Orbits: Unremarkable. Bones: No calvarial fracture. Impression: 1. No acute intracranial abnormality identified. 2. Mild cerebral volume loss and findings suggestive of chronic small vessel ischemic change. Please note that all CT scans at this facility use dose modulation, iterative reconstruction, and/or weight-based dosing when appropriate to reduce radiation dose to as low as reasonably achievable. Dictated by Enma Gilmore MD @ 01/19/2024 10:21:14 AM (Electronically Signed)
--- NOTE | 2024-01-19 09:41 | CRLHL7_ITS ---
For Patients: As a result of the Century Cures Act, medical imaging exams and procedure reports are released immediately into your electronic medical record. You may view this report before your referring provider. If you have questions, please contact your health care provider. INDICATION: Trauma. TECHNIQUE: CT of the cervical spine without contrast. COMPARISON: None available. FINDINGS: Vertebral alignment: Straightening of the cervical lordosis without subluxation. Vertebrae: Vertebral body heights are maintained. No displaced fracture given limitations of osseous demineralization. Multilevel degenerative disc disease and facet arthropathy, which is most pronounced and severe at C5-C6. Extraspinal findings: Atherosclerotic carotid artery calcifications and vertebral artery calcifications. Posterior fossa is unremarkable. IMPRESSION: 1. No acute traumatic abnormality identified in the cervical spine. 2. Multilevel cervical spondylosis. Please note that all CT scans at this facility use dose modulation, iterative reconstruction, and/or weight-based dosing when appropriate to reduce radiation dose to as low as reasonably achievable. Dictated by Enma Gilmore MD @ 01/19/2024 10:24:53 AM (Electronically Signed)
[2024-01-19 10:19] LABS: Lactate* 0.8 mmol/L (0.5-1.9)
[2024-01-19 10:30] LABS: Red Blood Count 4.38 m/uL (4.30-5.90); White Blood Count* 5.61 K/uL (4.50-11.00)
[2024-01-19 10:31] LABS: Basophils Percent Auto 0.4 % (0.0-3.0); Eosinophils Percent Auto 2.9 % (0.0-7.0); Hematocrit 44.1 % (37.0-53.0); Hemoglobin* 14.4 gm/dL (13.5-17.5); Immature Granulocytes Pct Auto 0.4 %; Lymphocytes Percent Auto 21.2 % (20-44); Mean Corpuscular HGB Conc 33 gm/dL (32-36); Mean Corpuscular Hemoglobin 33 pg (26-34); Mean Corpuscular Volume 101 fL (80-100); Monocytes Percent Auto 6.8 % (0.0-11.0); Neutrophils Percent Auto 68.3 % (42.0-72.0); Platelet Count* 217 K/uL (140-440); Slide Review Reflex No
[2024-01-19 10:36] LABS: Albumin* 4.3 g/dL (3.3-5.0); Chloride* 109 mmol/L (96-114); Potassium* 4.3 mmol/L (3.6-5.1); Sodium* 139 mmol/L (135-149)
[2024-01-19 10:39] LABS: Alanine Aminotransferase* 12 U/L (4-50); Alkaline Phosphatase* 45 U/L (40-150); Anion Gap 5 mEq/L (7-15); Aspartate Amino Transferase* 30 U/L (12-35); Bilirubin Total* 0.8 mg/dL (0.1-1.5); Blood Urea Nitrogen* 30 mg/dL (7-30); Carbon Dioxide* 25 mmol/L (20-32); Creatinine* 1.2 mg/dL (0.5-1.5); Est. Creatinine Clearance* 43.54; Estimated Glomerular Filt Rate 59 ml/min; Glucose* 91 mg/dL (60-115); Total Protein* 7.2 g/dL (6.0-8.3)
[2024-01-19 10:40] LABS: Calcium* 9.4 mg/dL (8.4-10.6)
[2024-01-19 10:51] LABS: Troponin I* 0.02 ng/mL (0.01-0.04)
[2024-01-19] MEDS: ACETAMINOPHEN 500 MG TABLET 1000 MG PO (10:54)
[2024-01-19 11:01] LABS: NT Pro B Type NatriureticPept* 394 pg/mL
== END 2024-01-19 11:50 | disposition home or self-care (01) ==
PROVIDERS: Emergency Provider Family Medicine; PCP Family Medicine
DX: M54.2 Cervicalgia (principal); W19.XXXA Unspecified fall, initial encounter
CPT/HCPCS: 36415; 70450; 72125; 80053; 83605; 83880; 84484; 85025; 93005; 94761; 99284; 99285; A9270

== ENCOUNTER 2024-02-01 09:28 | Outpatient (CLI) | payer MEDICARE, OTHER, SELFPAY | END 2024-02-01 09:29 | disposition home or self-care (01) | LOC: AMB 02-04 20:23 | PROVIDERS: PCP Family Medicine; Visit Provider Family Medicine | DX: R53.1 Weakness (principal); F03.90 Unspecified dementia, unspecified severity, without behavioral disturbance, psychotic disturbance, mood disturbance, and anxiety | CPT/HCPCS: A0425; A0429 ==

== ENCOUNTER 2024-02-01 09:54 | Emergency (ER) | payer MEDICARE, OTHER, SELFPAY ==
[2024-02-01 09:56] VITALS: BP 135/84; PULSE 61; RESP 18; TEMP 36; O2SAT 95; BMI 435.3
[2024-02-01 10:00] VITALS: BP 135/84; PULSE 60; RESP 16; O2SAT 95
--- NOTE | 2024-02-01 10:20 | ED.GENADULT ---
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 He did not lose consciousness. He feels fine at this point. He is brought in by ambulance. He has had a series of 3 falls over 2 weeks, and it since he started metoprolol. It looks like his blood pressure couple of times was a little bit low on her home reading. He otherwise feels well, no fevers, no chills, he recently had a cardiology appointment a few weeks ago and started on metoprolol. He does have a cardiac pacemaker. He has had no chest pain or breathing problem. He does have dementia. They live together in the [facility] area. He was brought in by ambulance. He really has no complaints. Related Data Home Medications ?Medication ?Instructions ?Recorded ?Confirmed acetaminophen 650 mg 650 mg PO DAILY 11/28/23 01/19/24 tablet,extended release amlodipine 5 mg tablet 5 mg PO DAILY 11/28/23 01/19/24 aspirin 325 mg tablet,delayed 325 mg PO DAILY 11/28/23 01/19/24 release bupropion HCl 300 mg 24 hr tablet, 300 mg PO DAILY 11/28/23 01/19/24 extended release cholecalciferol (vitamin D3) 50 100 mcg PO DAILY 11/28/23 01/19/24 mcg (2,000 unit) capsule dipyridamole 50 mg tablet 50 mg PO BID 11/28/23 01/19/24 escitalopram oxalate 20 mg tablet 20 mg PO QAM 11/28/23 01/19/24 famotidine 20 mg tablet 20 mg PO BID 11/28/23 01/19/24 gabapentin 300 mg capsule 300 mg PO 11/28/23 memantine 10 mg tablet 10 mg PO BID 11/28/23 01/19/24 montelukast 10 mg tablet 10 mg PO QPM 11/28/23 01/19/24 omeprazole 40 mg capsule,delayed 40 mg PO DAILY 11/28/23 01/19/24 release primidone 50 mg tablet 50 mg PO QPM 11/28/23 01/19/24 simvastatin 40 mg tablet 40 mg PO QPM 11/28/23 01/19/24 tamsulosin 0.4 mg capsule 0.8 mg PO DAILY 11/28/23 01/19/24 Previous Rx's ?Medication ?Instructions ?Recorded benzonatate 200 mg capsule 200 mg PO BID PRN cough #10 caps 07/05/23 Allergies Allergy/AdvReac Type Severity Reaction Status Date / Time adhesive tape Allergy Blister Verified 11/28/23 10:24 diatrizoate meglumine Allergy angioedema Verified 11/28/23 10:24 venom-wasp Allergy Hives Verified 11/28/23 10:24 Beta-Blockers AdvReac Cough Verified 11/28/23 10:24 (Beta-Adrenergic Bloc digoxin AdvReac bipolar Verified 11/28/23 10:24 donepezil [From Aricept] AdvReac confusion Verified 11/28/23 10:24 lisinopril AdvReac Cough Verified 11/28/23 10:24 losartan [From Cozaar] AdvReac Verified 11/28/23 10:24 terazosin AdvReac Dizziness Verified 11/28/23 10:24 Review of Systems Status of ROS: Reports: 6 or more systems reviewed and unremarkable except as noted in History and below [facility] Social History Smoking Status: Former smoker How often do you have a drink containing alcohol: never How often do you have six or more drinks on one occasion: Never AUDIT-C Alcohol total score: 0 Non-prescribed substance use: denies use service: No Exam Narrative: Exam Narrative: Objective patient's vital signs look unremarkable his pulse is 60 O2 sat 95% on run room air Alert orient x3 No facial asymmetry Moves all extremities well, chest back neck abdomen pelvis upper lower extremities unremarkable, no pain to palpation, no bruising, no deformity Abdomen benign Periphery skin is warm and dry Const: Vital Signs, click to edit/add: Vital Signs - 24 hr 02/01/24 09:56 02/01/24 10:00 02/01/24 10:34 Temperature 96.8 F L Pulse Rate [Right Radial] 61 60 60 Respiratory Rate 18 16 16 Blood Pressure [Le ft Upper Arm] 135/84 135/84 129/79 Pulse Oximetry 95 95 95 Oxygen Delivery Me thod Room Air Room Air Room Air 06/05/24 10:45 02/01/24 11:05 Temperature 97.0 F L 97.0 F L Pulse Rate [Right Radial] 62 62 Respiratory Rate 16 18 Blood Pressure [Le ft Upper Arm] 112/77 112/77 Pulse Oximetry 95 Oxygen Delivery Me thod Room Air Course Vital Signs Vital signs: Initial Vital Signs Temperature 96.8 F L 02/01/24 09:56 Temperature Source Temporal Artery Scan 02/01/24 09:56 Pulse Rate 61 02/01/24 09:56 Pulse Rhythm Regular 02/01/24 09:56 Respiratory Rate 18 02/01/24 09:56 Blood Pressure 135/84 02/01/24 09:56 Blood Pressure Mean 101 02/01/24 09:56 Blood Pressure Position Supine 02/01/24 09:56 Pulse Oximetry 95 02/01/24 09:56 Oxygen Delivery Method Room Air 02/01/24 09:56 Vital Signs Temperature 96.8 F L 02/01/24 09:56 Pulse Rate 61 02/01/24 09:56 Respiratory Rate 18 02/01/24 09:56 Blood Pressure 135/84 02/01/24 09:56 Pulse Oximetry 95 02/01/24 09:56 Oxygen Delivery Method Room Air 02/01/24 09:56 Temperature 97.0 F L 02/01/24 11:05 Pulse Rate 62 02/01/24 11:05 Respiratory Rate 18 02/01/24 11:05 Blood Pressure 112/77 02/01/24 11:05 Pulse Oximetry 95 02/01/24 10:45 Oxygen Delivery Method Room Air 02/01/24 10:45 Medical Decision Making [facility] Narrative Medical decision making narrative: 83-year-old male with dementia living in [facility] independent living with his with a series of falls. She does have a couple of blood pressure readings are a little bit lower. The patient has had blood work done the end of December before his cardiology visit was all reassuring by 's report. I think at this point he does not appear injured. I do think we should cut his metoprolol in half, and she will check his blood pressure before administering that if it is less than 100 she will hold it. Can discuss with Cardiology when they are able. Return to the ED as needed. At this point she wishes to return to the independent living at [facility] that they are currently residing at and is not interested more advanced care. Addendum 10:30 a.m. the patient's transportation coordinator actually called and recommended a half a metoprolol the morning and half at night of his usual dose. I think that is an excellent idea. They can return home. His EKG by my review shows atrial paced rhythm with prolonged AV conduction which is consistent with a paced rhythm. This is by my read. He will be discharged home he does not appear to have injury. is comfortable plan. They can return if there is problems or concerns or continued falling and they wish to assess more advanced living arrangement Discharge Plan Discharge Clinical Impression: Fall Patient Disposition: Home w/ Parent or Adult Condition: Stable Instructions: Fall Prevention (ED) Additional Instructions: Liability Analyst actually called while here in the ER, they recommended cutting his metoprolol in half half a pill morning half pill at night. I think that is appropriate. Return if needed. Activity Level: Light activity Discharge Diet: Regular Prescriptions: No Action benzonatate 200 mg capsule 200 mg PO BID PRN (Reason: cough) Qty: 10 0RF acetaminophen 650 mg tablet extended release 650 mg PO DAILY famotidine 20 mg tablet 20 mg PO BID aspirin 325 mg tablet,delayed release (DR/EC) 325 mg PO DAILY gabapentin 300 mg capsule 300 mg PO Patient Comments: one capsule y mouth every morning and noon, 2 caps at HS dipyridamole 50 mg tablet 50 mg PO BID escitalopram oxalate 20 mg tablet 20 mg PO QAM bupropion HCl 300 mg tablet extended release 24 hr 300 mg PO DAILY memantine 10 mg tablet 10 mg PO BID cholecalciferol (vitamin D3) 50 mcg (2,000 unit) capsule 100 mcg PO DAILY primidone 50 mg tablet 50 mg PO QPM amlodipine 5 mg tablet 5 mg PO DAILY omeprazole 40 mg capsule,delayed release(DR/EC) 40 mg PO DAILY simvastatin 40 mg tablet 40 mg PO QPM tamsulosin 0.4 mg capsule 0.8 mg PO DAILY montelukast 10 mg tablet 10 mg PO QPM Follow Up/Referrals: Geeta Manning MD [Primary Care Provider] - Stand Alone Forms: [employer] Info Instructions
[2024-02-01 10:34] VITALS: BP 129/79; PULSE 60; RESP 16; O2SAT 95
[2024-02-01 10:45] VITALS: BP 112/77; PULSE 62; RESP 16; TEMP 36.1; O2SAT 95
[2024-02-01 11:05] VITALS: BP 112/77; PULSE 62; RESP 18; TEMP 36.1
== END 2024-02-01 11:05 | disposition home or self-care (01) ==
PROVIDERS: Emergency Provider Family Medicine; PCP Family Medicine
DX: F03.90 Unspecified dementia, unspecified severity, without behavioral disturbance, psychotic disturbance, mood disturbance, and anxiety (principal); W19.XXXA Unspecified fall, initial encounter
CPT/HCPCS: 93005; 99284

== ENCOUNTER 2024-07-15 17:13 | Outpatient (CLI) | payer MEDICARE, OTHER, SELFPAY | END 2024-07-15 17:14 | disposition home or self-care (01) | LOC: AMB 07-18 02:26 | PROVIDERS: PCP Family Medicine; Visit Provider Emergency Medicine | DX: R41.82 Altered mental status, unspecified (principal); I10 Essential (primary) hypertension | CPT/HCPCS: A0425; A0429 ==

== ENCOUNTER 2024-07-15 17:31 | Emergency (ER) | payer MEDICARE, OTHER, SELFPAY ==
[2024-07-15] VITALS (15 sets, daily range): BP systolic 186–197; BP diastolic 99–102; PULSE 59–79; RESP 18; TEMP 36.4–36.9; O2SAT 94–100; BMI 27.0
--- NOTE | 2024-07-15 18:04 | ED_ITS ---
HPI - General Adult General Date Seen: 07/15/24 Chief complaint: Altered Mental Status Stated complaint: altered mental status Time Seen by Provider: 07/15/24 17:43 History of Present Illness HPI narrative: 83-year-old gentleman presents to the ER today by EMS from his independent living care unit at [facility]. He presents to the ER today by EMS but is accompanied by his , who provides most history for him. Because of the patient's confusion he is not able to reliably answer questions. He has a past medical history of dementia, but normally is oriented to person and place. He has been healthy and well lately. No recent illnesses, cough, nausea, vomiting, or diarrhea. No recent fever. No reported recent episodes of chest pain or shortness of breath. notes that he generally has difficulty with urination and recently has been tending to hold his urine all day long and only urinate once per day. She does not know if he has urinated yet today. He was able to go to [facility] this [facility]. They even did a brief workout on exercise equipment today. He seemed to be fine. Shortly before supper he started to complain that something was wrong but could not describe it. He complained perhaps of some shortness of breath or maybe some discomfort in the right side of his chest, but it is unclear what he was meaning. He then told his the something was wrong and seemed more confused than normal. Now that he is here in the ER he still confused but not able to describe any symptoms. At 1 point he indicates that something might be wrong with either his right eye or the right side of his head. He currently denies any other pain. He denies nausea. He denies chest pain. He has not feel short of breath. He is not having palpitations. History is otherwise limited. In addition to dementia he has a past medical history of dyslipidemia, on statins. He has a history of dementia, Alzheimer's disease, depression anxiety. He has a past medical history of unspecified glaucoma. Cardiac history includes hypertension, PSVT, paroxysmal AFib, dual-chamber pacemaker implanted about 10 years ago. Also history of hypothyroidism, allergic rhinitis, GERD Related Data Home Medications ?Medication ?Instructions ?Recorded ?Confirmed acetaminophen 650 mg 650 mg PO DAILY 11/28/23 01/19/24 tablet,extended release amlodipine 5 mg tablet 5 mg PO DAILY 11/28/23 01/19/24 aspirin 325 mg tablet,delayed 325 mg PO DAILY 11/28/23 01/19/24 release bupropion HCl 300 mg 24 hr tablet, 300 mg PO DAILY 11/28/23 01/19/24 extended release cholecalciferol (vitamin D3) 50 100 mcg PO DAILY 11/28/23 01/19/24 mcg (2,000 unit) capsule dipyridamole 50 mg tablet 50 mg PO BID 11/28/23 01/19/24 escitalopram oxalate 20 mg tablet 20 mg PO QAM 11/28/23 01/19/24 famotidine 20 mg tablet 20 mg PO BID 11/28/23 01/19/24 gabapentin 300 mg capsule 300 mg PO 11/28/23 memantine 10 mg tablet 10 mg PO BID 11/28/23 01/19/24 montelukast 10 mg tablet 10 mg PO QPM 11/28/23 01/19/24 omeprazole 40 mg capsule,delayed 40 mg PO DAILY 11/28/23 01/19/24 release primidone 50 mg tablet 50 mg PO QPM 11/28/23 01/19/24 simvastatin 40 mg tablet 40 mg PO QPM 11/28/23 01/19/24 tamsulosin 0.4 mg capsule 0.8 mg PO DAILY 11/28/23 01/19/24 Previous Rx's ?Medication ?Instructions ?Recorded benzonatate 200 mg capsule 200 mg PO BID PRN cough #10 caps 07/05/23 Allergies Allergy/AdvReac Type Severity Reaction Status Date / Time adhesive tape Allergy Blister Verified 11/28/23 10:24 diatrizoate meglumine Allergy angioedema Verified 11/28/23 10:24 venom-wasp Allergy Hives Verified 11/28/23 10:24 Beta-Blockers AdvReac Cough Verified 11/28/23 10:24 (Beta-Adrenergic Bloc digoxin AdvReac bipolar Verified 11/28/23 10:24 donepezil (From Aricept) AdvReac confusion Verified 11/28/23 10:24 lisinopril AdvReac Cough Verified 11/28/23 10:24 losartan (From Cozaar) AdvReac Verified 11/28/23 10:24 terazosin AdvReac Dizziness Verified 11/28/23 10:24 PFSH PFSH Social History Smoking Status: Former smoker How often do you have a drink containing alcohol: never How often do you have six or more drinks on one occasion: Never AUDIT-C Alcohol total score: 0 Non-prescribed substance use: denies use service: No Exam Narrative: Exam Narrative: Constitutional: Appears well-developed and well-nourished. His eyes are closed but he is awake. History is obtained primarily from his . When I talk to me directly he does try to answer questions but seems confused. HENT: Head: Atraumatic. No depressed skull fracture, Raccoon Eyes, Marroquin's sign, or hemotympanum. Face normal. Both canals are occluded by cerumen. Nose: Nose normal. Mouth/Throat: Oral mucosa is clear and moist. no trismus. Pharynx normal. Tonsils symmetric. No tonsillar enlargement, erythema, or exudate. Eyes: Conjunctivae normal. Pupils equal, round, and reactive to light. No scleral icterus. No exophthalmos or enophthalmos. Gaze is conjugate. Extraocular movements are grossly intact, but he is not cooperating with EOM movements. Neck: Normal range of motion. Neck supple. No tracheal deviation present. Cardiovascular: Normal rate, regular rhythm. No gallop. No friction rub. No murmur heard. Symmetric radial artery pulses Pulmonary/Chest: Effort normal. No stridor. No respiratory distress. No wheezes. No rales. No rhonchi . No chest wall tenderness. Abdominal: Soft. Bowel sounds normal. No distension. No mass. Epigastric and suprapubic tenderness. No rebound. No guarding. Musculoskeletal: No C, T, L-spine midline tenderness. RUE: Normal range of motion. No tenderness. No deformity LUE: Normal range of motion. No tenderness. No deformity RLE: Normal range of motion. No edema. No tenderness. No deformity LLE: Normal range of motion. No edema. No tenderness. No deformity Neurological: Alert and oriented to person, but not place not date. When asked what day it is he gives me his birthday. Speech is fluent but slow because he is very confused. No slurred speech. No signs of expressive aphasia. No facial droop.. Normal strength with bilateral 5/5 biceps, triceps, women's health care nurse practitioner, psoas, gastrocs, tibialis anterior. CN II-VII intact. No sensory deficit. GCS eye subscore is 4. GCS verbal subscore is 5. GCS motor subscore is 6. Normal coordination Skin: Skin is warm and dry. No rash noted. No pallor. Normal capillary refill. Psychiatric: Limited by dementia. Seems somewhat anxious at times. Const: Vital Signs, click to edit/add: Vital Signs - 24 hr 07/15/24 17:43 Temperature 97.6 F Pulse Rate [Pulse Oximeter] 79 Respiratory Rate 18 Blood Pressure [Ri ght Upper Arm] 197/102 H Pulse Oximetry 100 Oxygen Delivery Me thod Room Air Course Vital Signs Vital signs: Initial Vital Signs Temperature 97.6 F 07/15/24 17:43 Temperature Source Temporal Artery Scan 07/15/24 17:43 Pulse Rate 79 07/15/24 17:43 Respiratory Rate 18 07/15/24 17:43 Blood Pressure 197/102 H 07/15/24 17:43 Blood Pressure Mean 133 H 07/15/24 17:43 Pulse Oximetry 100 07/15/24 17:43 Oxygen Delivery Method Room Air 07/15/24 17:43 Vital Signs Temperature 97.6 F 07/15/24 17:43 Pulse Rate 79 07/15/24 17:43 Respiratory Rate 18 07/15/24 17:43 Blood Pressure 197/102 H 07/15/24 17:43 Pulse Oximetry 100 07/15/24 17:43 Oxygen Delivery Method Room Air 07/15/24 17:43 Temperature 97.6 F 07/15/24 17:43 Pulse Rate 79 07/15/24 17:43 Respiratory Rate 18 07/15/24 17:43 Blood Pressure 197/102 H 07/15/24 17:43 Pulse Oximetry 100 07/15/24 17:43 Oxygen Delivery Method Room Air 07/15/24 17:43 Medical Decision Making MDM Narrative Medical decision making narrative: 84-year-old gentleman with a history of Alzheimer's dementia normally lives in assisted living with his at [facility] is brought to the ER today for abrupt onset of altered mental status that occurred this afternoon just before dinner. Other symptoms are a bit unclear because of his altered mental status but he may have had a brief episode of shortness of breath or possibly chest discomfort when this started. Based on his initial abnormal neuro mental status we are anticipating he would probably need to be admitted. However he had marked improvement and complete resolution of symptoms while he was here in the ER. Differential is quite broad. 1. Psychiatric. Does have history of dementia and depression/anxiety. Consider possible psych or panic attack. The patient was definitely altered and a little bit tearful when he arrived here without any focal deficits. While here in the ER he had complete resolution of his symptoms and is now back to his neurologic baseline. He still has some dementia so is not a reliable historian but is now alert, conversant, smiling, has both eyes open and is very pleasant. 2. Neuro. Consider possible intracranial hemorrhage. Noncontrast head CT is obtained and is fortunately normal. There were no focal deficits with this event to suggest an acute stroke. No evidence for any tremor or seizure-like activity. No history of seizures. When he arrives he indicated he might have had headache on the right side of his head. Consider possible temporal arteritis. However white count, sed rate, CRP are all low. At this point I do not think he has temporal arteritis requiring steroids or biopsy. 3. Cardiac. He may have complained of some shortness of breath around the time this came on. Unclear if that was a panic symptom or if it was truly a cardiopulmonary symptom. Initial EKG shows a paced rhythm. No definite ischemia. Initial troponin is negative. Given time since this event occurred I have ordered a 2 hour delta troponin which will be drawn at 8:20 p.m.. If that 2nd troponin is normal I think we have sufficient evidence to rule out ACS. He has not had any other recent episodes of shortness of breath or chest pain. Chest CT is negative for pulmonary edema, CHF 4. Pulmonary. Consider long causes of shortness of breath. He is not having any wheezy or bronchospasm. Lung sounds are clear bilaterally on my exam. No recent cough or other URI symptoms and COVID/influenza PCR is negative. Noncontrast chest CT (obtained initially because of potential allergy to iodinated contrast media) is negative for any acute focal infiltrate or pneumothorax. Consider possible PE. Screening D-dimer is abnormal. Therefore I have ordered premedication with Solu-Cortef and Benadryl and we will obtain a PE protocol chest CT after premedication. No wheezing or bronchospasm. Incidentally he does have a spiculated lung nodule in his right upper lung. Radiology recommend 3 month follow-up imaging. 5. Patient did seem to have some midline abdominal tenderness. Noncontrast abdomen CT is[]. Laboratory workup shows normal white count, normal lipase, normal LFTs. Lactate normal. Urinalysis negative for infection. There is enlargement of the patient's prostate on the CT scan. 6. Renal/electrolytes. Metabolic profile shows hyponatremia with sodium 129. Likely not low enough to cause symptoms. Would recommend recheck with primary care and repeat labs within week. Blood sugar normal. Other electrolytes such as bicarb, potassium are normal. Creatinine is 1.3 which is similar to recent priors, baseline. Dispo. At this point with complete resolution of symptoms anticipate he will be able to discharge home with his . I have discussed the patient with my oncoming partner, Dr. Wise. He will follow-up on the results of the chest CT, repeat troponin and as long as they are normal, and the patient remains asymptomatic patient can be discharged. If CT and/or troponin show any abnormality, Dr. Wise will disposition appropriately. Lab Data Labs: Lab Results 07/15/24 07/15/24 07/15/24 Range/Units 18:40 18:46 19:17 WBC 6.01 (4.50-11.00) K/uL RBC 3.97 L (4.30-5.90) m/uL Hgb 13.0 L (13.5-17.5) gm/dL Hct 39.6 (37.0-53.0) % MCV 100 (80-100) fL MCH 33 (26-34) pg MCHC 33 (32-36) gm/dL RDW Coeff of Juliann 13.1 (11.5-15.5) % Plt Count 222 (140-440) K/uL Neut % (Auto) 57.0 (42.0-72.0) % Lymph % (Auto) 29.0 (20-44) % [place] % (Auto) 9.3 (0.0-11.0) % Eos % (Auto) 4.2 (0.0-7.0) % Baso % (Auto) 0.3 (0.0-3.0) % Neut # (Auto) 3.43 (1.7-7.0) K/uL Lymph # (Auto) 1.74 (0.90-2.90) K/uL [place] # (Auto) 0.60 (0.00-0.90) K/UL Eos # (Auto) 0.25 (0.00-0.50) K/uL Baso # (Auto) 0.02 (0.00-0.30) K/uL Abs Immat Gran (auto) 0.01 (0.00-0.30) K/uL Imm/Tot Granulo (auto) 0.2 % ESR 11 (2-15) mm/hr D-Dimer Quant (PE/DVT) 1.16 H (0.00-0.50) ug/ml Sodium 129 L (135-149) mmol/L Potassium 3.9 (3.6-5.1) mmol/L Chloride 103 (96-114) mmol/L Carbon Dioxide 24 (20-32) mmol/L Anion Gap 2 L (7-15) mEq/L BUN 31 H (7-30) mg/dL Creatinine 1.3 (0.5-1.5) mg/dL Estimated Creat Clear 47.42 Estimated GFR 54 ml/min Glucose 98 (60-115) mg/dL Lactate 0.7 (0.5-1.9) mmol/L Calcium 9.6 (8.4-10.6) mg/dL Total Bilirubin 0.3 (0.1-1.5) mg/dL AST 29 (12-35) U/L ALT 13 (4-50) U/L Alkaline Phosphatase 44 (40-150) U/L Troponin I < 0.01 L (0.01-0.04) ng/mL C-Reactive Protein < 0.5 L (0.5-1.0) mg/dL Total Protein 6.2 (6.0-8.3) g/dL Albumin 3.8 (3.3-5.0) g/dL Lipase 74 (23-300) U/L Urine Color Yellow (Yellow) Urine Appearance Clear (Clear) Urine pH 7.0 (5.0-8.5) Ur Specific [place] 1.015 (1.000-1.030) Urine Protein Negative (Negative) Urine Glucose (UA) Negative (Negative) Urine Ketones Negative (Negative) Urine Blood Negative (Negative) Urine Nitrite Negative (Negative) Urine Bilirubin Negative (Negative) Urine Urobilinogen 1.0 (0.2-1.0) Ur Leukocyte Esterase Negative (Negative) Urine RBC 0-2 (0-2) Urine WBC 0-2 (0-5) Ur Squamous Epith Cells None (None-Few) Urine Bacteria None (None) SARS-CoV-2 (PCR) Negative SARS-CoV-2 (Negative) Influenza Type A (PCR) Negative PCR FLU A (Negative) Influenza Type B (PCR) Negative PCR FLU B (Negative) POC Creatinine 1.4 H (0.6-1.3) mg/dl Imaging Data CT scan - head: Attestation: I have reviewed the pertinent imaging results. Radiologist's impression: Impression: 1. No acute intracranial process. 2. [id number] chronic ischemic microvascular disease. CT Chest/Ab/Pelvis: Attestation: I have reviewed the pertinent imaging results. Radiologist's impression: IMPRESSION: 1. no acute intra-abdominal process identified. 2. 9 millimeter nodular opacity in the right upper lobe with spiculations may represent underlying scarring versus spiculated nodule. Recommend repeat evaluation in 3 months to ensure stability. 3. Prostatomegaly. 4. Left nonobstructive nephrolithiasis. ECG Data Interpretation: Atrial paced rhythm Rate: 63 WV: 296 prolonged AV conduction QRS axis: Normal axis. ST segment/T wave: No ST segment elevation or depression. QTc: 401 Discharge Plan Discharge Clinical Impression: Altered mental status, Lung nodule, Enlarged prostate Patient Disposition: Home w/ Parent or Adult Condition: Stable Instructions: Altered Mental Status (ED) Additional Instructions: As we discussed, at this point the cause of his episode is unclear. Please monitor carefully and if he has any more concerning symptoms bring him back to the ER right away. Please recheck with his regular doctor for a checkup within 1 week. Please ask your doctor to arrange a follow-up CT scan of your lungs to occur in early September. Prescriptions: No Action benzonatate 200 mg capsule 200 mg PO BID PRN (Reason: cough) Qty: 10 0RF acetaminophen 650 mg tablet extended release 650 mg PO DAILY famotidine 20 mg tablet 20 mg PO BID aspirin 325 mg tablet,delayed release (DR/EC) 325 mg PO DAILY gabapentin 300 mg capsule 300 mg PO Patient Comments: one capsule y mouth every morning and noon, 2 caps at HS dipyridamole 50 mg tablet 50 mg PO BID escitalopram oxalate 20 mg tablet 20 mg PO QAM bupropion HCl 300 mg tablet extended release 24 hr 300 mg PO DAILY memantine 10 mg tablet 10 mg PO BID cholecalciferol (vitamin D3) 50 mcg (2,000 unit) capsule 100 mcg PO DAILY primidone 50 mg tablet 50 mg PO QPM amlodipine 5 mg tablet 5 mg PO DAILY omeprazole 40 mg capsule,delayed release(DR/EC) 40 mg PO DAILY simvastatin 40 mg tablet 40 mg PO QPM tamsulosin 0.4 mg capsule 0.8 mg PO DAILY montelukast 10 mg tablet 10 mg PO QPM Follow Up/Referrals: Geeta Manning MD [Primary Care Provider] - Stand Alone Forms: [facility] Info Instructions
--- NOTE | 2024-07-15 18:22 | CRLHL7_ITS ---
For Patients: As a result of the Century Cures Act, medical imaging exams and procedure reports are released immediately into your electronic medical record. You may view this report before your referring provider. If you have questions, please contact your health care provider. Indication : Altered mental status. Technique : CT of the brain without intravenous contrast. Comparison: CT head 06/28/2020. Findings: No acute blurring of the lambert-white differentiation. There is no intracranial hemorrhage. The ventricles are proportionate to the cerebral sulci. The 4th ventricle is midline. Basal cisterns appear patent. No abnormal extra-axial fluid collection identified. Mild parenchymal volume loss. There is gdlx-fu-sykwasqg patchy periventricular hypodensity, favored to represent chronic ischemic microvascular disease. There is no intracranial mass, mass effect or midline shift identified. No depressed calvarial fracture. Impression: 1. No acute intracranial process. 2. Lchd-hb-komkpiny chronic ischemic microvascular disease. Please note that all CT scans at this facility use dose modulation, iterative reconstruction, and/or weight-based dosing when appropriate to reduce radiation dose to as low as reasonably achievable. Dictated by Herberth Bejarano MD @ 07/15/2024 7:38:34 PM (Electronically Signed)
--- NOTE | 2024-07-15 18:25 | CRLHL7_ITS ---
For Patients: As a result of the Century Cures Act, medical imaging exams and procedure reports are released immediately into your electronic medical record. You may view this report before your referring provider. If you have questions, please contact your health care provider. INDICATION: altered mental status, Suprapubic and epigastric tender, SOB. TECHNIQUE: CT chest, abdomen and pelvis acquired without contrast. COMPARISON: None. FINDINGS: CHEST: Cardiovascular structures: Heart size is normal. Thoracic aorta and main pulmonary artery are normal in caliber. Coronary artery calcifications are noted. Left chest wall pacer with leads extending to the right atrium and ventricle. Mediastinum and mateusz: No mass or adenopathy. Lungs and pleura: Right upper lobe spiculated lesion measuring 9 millimeters, may represent scarring versus spiculated nodule. Bibasilar linear opacities likely atelectasis or scarring. Chest wall and axilla: No mass or adenopathy. Bones: No suspicious bone lesions. Unremarkable for age. ABDOMEN AND PELVIS: Liver: Unremarkable. Gallbladder and bile ducts: Unremarkable. Pancreas: Unremarkable. Spleen: Unremarkable. Adrenal glands: Unremarkable. Kidneys: 9 millimeter nonobstructive stone at the inferior pole of the left kidney. No hydronephrosis or hydroureter bilaterally. No obstructive stones bilaterally. GI tract: No bowel obstruction. Average colonic stool volume. Appendix is within normal limits. Vascular structures: Abdominal aorta is normal in caliber. Diffuse moderate to severe calcific atherosclerosis. Lymph nodes: Unremarkable. Miscellaneous: Unremarkable. No free air or significant free fluid. Pelvic Organs: Prostatomegaly indenting the base of the bladder. Bladder is otherwise unremarkable.. Bones: No suspicious bone lesions. Unremarkable for age. IMPRESSION: 1. no acute intra-abdominal process identified. 2. 9 millimeter nodular opacity in the right upper lobe with spiculations may represent underlying scarring versus spiculated nodule. Recommend repeat evaluation in 3 months to ensure stability. 3. Prostatomegaly. 4. Left nonobstructive nephrolithiasis. Please note that all CT scans at this facility use dose modulation, iterative reconstruction, and/or weight-based dosing when appropriate to reduce radiation dose to as low as reasonably achievable. Dictated by Maira Goodman MD @ 07/15/2024 7:57:56 PM (Electronically Signed)
[2024-07-15 18:48] LABS: Lactate* 0.7 mmol/L (0.5-1.9)
[2024-07-15 18:49] LABS: Basophils Absolute Auto 0.02 K/uL (0.00-0.30); Basophils Percent Auto 0.3 % (0.0-3.0); Eosinophils Absolute Auto 0.25 K/uL (0.00-0.50); Eosinophils Percent Auto 4.2 % (0.0-7.0); Hematocrit 39.6 % (37.0-53.0); Immature Granulocytes Abs Auto 0.01 K/uL (0.00-0.30); Immature Granulocytes Pct Auto 0.2 %; Lymphocytes Absolute Auto 1.74 K/uL (0.90-2.90); Mean Corpuscular HGB Conc 33 gm/dL (32-36); Mean Corpuscular Hemoglobin 33 pg (26-34); Mean Corpuscular Volume 100 fL (80-100); Monocytes Percent Auto 9.3 % (0.0-11.0); Neutrophils Absolute Auto 3.43 K/uL (1.7-7.0); Platelet Count* 222 K/uL (140-440); RDW Coefficient of Variation % 13.1 % (11.5-15.5); Red Blood Count 3.97 m/uL (4.30-5.90); Slide Review Reflex No; White Blood Count* 6.01 K/uL (4.50-11.00)
[2024-07-15 18:50] LABS: Creatinine, Point-of-Care* 1.4 mg/dl (0.6-1.3)
[2024-07-15 19:02] LABS: Albumin* 3.8 g/dL (3.3-5.0); Chloride* 103 mmol/L (96-114); Sodium* 129 mmol/L (135-149)
[2024-07-15 19:03] LABS: Potassium* 3.9 mmol/L (3.6-5.1)
[2024-07-15 19:05] LABS: Alanine Aminotransferase* 13 U/L (4-50); Alkaline Phosphatase* 44 U/L (40-150); Anion Gap 2 mEq/L (7-15); Aspartate Amino Transferase* 29 U/L (12-35); Bilirubin Total* 0.3 mg/dL (0.1-1.5); Blood Urea Nitrogen* 31 mg/dL (7-30); Calcium* 9.6 mg/dL (8.4-10.6); Carbon Dioxide* 24 mmol/L (20-32); Creatinine* 1.3 mg/dL (0.5-1.5); Est. Creatinine Clearance* 47.42; Estimated Glomerular Filt Rate 54 ml/min; Glucose* 98 mg/dL (60-115); Lipase* 74 U/L (23-300); Total Protein* 6.2 g/dL (6.0-8.3)
[2024-07-15 19:13] LABS: C Reactive Protein* < 0.5 mg/dL (0.5-1.0)
[2024-07-15 19:19] LABS: Troponin I* < 0.01 ng/mL (0.01-0.04)
[2024-07-15 19:22] LABS: Appearance Urine Clear (Clear); Bilirubin Urine Negative (Negative); Blood Urine Negative (Negative); Color Urine Yellow (Yellow); Glucose Urine Negative (Negative); Ketones Urine Negative (Negative); Leukocyte Esterase Urine Negative (Negative); Nitrite Urine Negative (Negative); Protein Urine Negative (Negative); Specific Gravity Urine 1.015 (1.000-1.030)
--- NOTE | 2024-07-15 19:22 | ED.NURSE ---
states pt is allergic to contrast dye. CT will be without contrast per doctor.
[2024-07-15 19:26] LABS: Erythrocyte SedimentationRate* 11 mm/hr (2-15)
[2024-07-15 19:29] LABS: RBC Urine 0-2 (0-2); WBC Urine 0-2 (0-5)
[2024-07-15 19:33] LABS: D Dimer Quantitative* 1.16 ug/ml (0.00-0.50); PCR FLU A Negative PCR FLU A (Negative); PCR FLU B Negative PCR FLU B (Negative); SARS PCR* Negative SARS-CoV-2 (Negative)
[2024-07-15] MEDS: HYDROCORTISONE SOD SUCCINATE 50 MG/ML inj 100 MG IVP (19:55)
--- NOTE | 2024-07-15 20:39 | CRLHL7_ITS ---
For Patients: As a result of the Century Cures Act, medical imaging exams and procedure reports are released immediately into your electronic medical record. You may view this report before your referring provider. If you have questions, please contact your health care provider. INDICATION: Pulmonary embolism (PE) suspected, positive D-dimer. Chest pain and shortness of breath. TECHNIQUE: CT chest PE was acquired with 95 cc Omnipaque 370 IV contrast. COMPARISON: CT chest abdomen pelvis 07/15/2024. FINDINGS: Heart and vasculature: Contrast opacification of the pulmonary arterial tree is adequate. No pulmonary embolism identified. No cardiomegaly or pericardial effusion. No thoracic aortic aneurysm. Main pulmonary artery is normal in caliber. There are coronary artery calcifications and atherosclerotic calcifications of the aorta. Lungs and pleura: Spiculated right upper lobe lung nodule versus consolidation measuring 1.6 cm (series 4, image 32), similar to prior. Linear bibasilar airspace consolidation. No pleural effusion or pneumothorax. Lymph nodes/mediastinum: No suspicious lymphadenopathy. Chest wall: No masses. Upper abdomen: No acute or suspicious abnormality. Bones: No acute or suspicious abnormality. IMPRESSION: 1. No pulmonary embolism identified. 2. Linear bilateral airspace consolidations may reflect atelectasis, however developing infectious process is not definitively excluded. 3. Redemonstrated right upper lobe spiculated nodule versus consolidation measuring 1.[address] at 3 months or PET/CT recommended. Please note that all CT scans at this facility use dose modulation, iterative reconstruction, and/or weight-based dosing when appropriate to reduce radiation dose to as low as reasonably achievable. Dictated by Oumar Coates MD @ 07/15/2024 10:13:07 PM (Electronically Signed)
[2024-07-15] MEDS: diphenhydrAMINE 50 MG/ML inj 25 MG IVP (20:44)
[2024-07-15 21:20] LABS: Troponin I* < 0.01 ng/mL (0.01-0.04)
== END 2024-07-15 23:04 | disposition home or self-care (01) ==
PROVIDERS: Emergency Provider Emergency Medicine; PCP Family Medicine
DX: R91.1 Solitary pulmonary nodule (principal); N41.9 Inflammatory disease of prostate, unspecified
CPT/HCPCS: 36415; 70450; 71250; 71275; 74176; 80053; 81001; 82565; 83605; 83690; 84484; 85025; 85379; 85651; 86140; 87040; 87631; 96374; 96375; 99284; J1200; J1720; Q9967

== ENCOUNTER 2024-10-15 13:45 | Emergency (ER) | payer MEDICARE, OTHER, SELFPAY ==
--- OUTSIDE RECORDS SUMMARY | 2024-10-15 13:48 | XMS_ITS | Clinical Summary ---
Author Organization [facility] Address [address] , [address] [place] [address] Phone Care Team Providers Care Sash Maker Name Role Phone Africa Lowry Unavailable [phone] Conditions or Problems Problem Name Problem Code Onset Date Status Entry Date Provider Comment Standard Description Annotate Visual loss 612920803 (SNOMED CT) 10/09 Active 10/09 Emerson Walter MD Visual impairment tremulousness 333.1 (ICD-9-CM) 02/20 Resolved 02/20 Emerson Walter MD Essential and other specified forms of tremor Essential tremor 642240675 (SNOMED CT) 10/09 Active 10/09 Emerson Walter MD Essential tremor Memory loss 53255483 (SNOMED CT) 02/20 Resolved 02/20 Emerson Walter MD Amnesia Gait disturbance 21703231 (SNOMED CT) 10/09 Active 10/09 Emerson Walter MD Abnormal gait Dementia, advanced 05534259 (SNOMED CT) 10/09 Active 10/09 Emerson Walter MD Dementia Parkinsonism, unspecified 04662885 (SNOMED CT) 10/09 Active 10/09 Emerson Walter MD Parkinsonism Mild cognitive impairment, so stated 822634776 (SNOMED CT) 03/27 Resolved 04/15 Emerson Walter MD Impaired cognition Mild cognitive impairment, so stated 549768418 (SNOMED CT) 03/27 Removed 04/15 Yodit Neil PhD Impaired cognition Memory loss 33747457 (SNOMED CT) 02/20 Removed 02/20 Kp M. Tarrel DO Amnesia tremulousness 333.1 (ICD-9-CM) 02/20 Removed 02/20 Kp Orozco DO Essential and other specified forms of tremor Medications Medication Instructions Start Date Stop Date Generic Name NDC Provider MEMANTINE HCL 10 MG TABS Take 1 tablet by mouth twice a day memantine 98289746908 Emerson Walter MD ASPIRIN 325 MG TBEC Take 1 tablet by mouth once a day aspirin 75649968009 Emerson Walter MD INDERAL LA 60 MG [id number] 1 by mouth every morning 10/09 propranolol 37899325528 Emerson Walter MD IPRATROPIUM BROMIDE 0.03 % SOLN Inhale 2 spray into both nostrils three times a day 10/09 ipratropium bromide 70033416238 Emerson Walter MD GEMFIBROZIL 600 MG TABS 10/09 gemfibrozil 64665256065 Emerson Walter MD OMEPRAZOLE 40 MG CPDR Take 1 capsule by mouth once a day omeprazole 22624684266 Emerson Walter MD AMLODIPINE BESYLATE 5 MG TABS Take 1 tablet by mouth once a day amlodipine 81637434733 Emerson Walter MD TAMSULOSIN HCL 0.4 MG CAPS 10/09 tamsulosin 46031456279 Emerson Walter MD OLOPATADINE HCL 0.1 % SOLN Place 1 drop into both eyes twice a day 10/09 olopatadine 77429381211 Emerson Walter MD BRIMONIDINE TARTRATE 0.2 % SOLN Place 1 drop into both eyes twice a day brimonidine 20894280694 Emerson Waltre MD coenzyme q10 100 mg cap Take 1 capsule by mouth once a day coenzyme q10 100 mg cap Emerson Walter MD SIMVASTATIN 40 MG TABS Take 1 tablet by mouth every night simvastatin 92622146021 Emerson Walter MD PRIMIDONE 50 MG TABS Take 1 tablet by mouth every night 10/09 primidone 42101129292 Emerson Walter MD BUPROPION HCL ER (XL) 300 MG [id number] Take 1 tablet by mouth once a day 10/09 bupropion hcl 16972188534 Emerson Walter MD PEG 3350 17 GM/SCOOP POWD Use once a day 10/09 polyethylene glycol 3350 53062237840 Emerson Walter MD MYSOLINE 50 MG TABS 1 by mouth twice a day as needed 10/09 primidone 83401129393 Emerson Walter MD cholecalciferol (Vitamin D-3) 2,000 unit capsule Take 2 capsule by mouth once a day Vitamin D-3 Emerson Walter MD FAMOTIDINE 20 MG TABS Take 1 tablet by mouth twice a day famotidine 60711510327 Emerson Walter MD SODIUM CHLORIDE 0.9 % SOLN Inject 250 ml intravenously single dose 10/09 sodium chloride 0.9 % 44167421400 Emerson Walter MD MONTELUKAST SODIUM 10 MG TABS Take 1 tablet by mouth every night montelukast 79092050383 Emerson Walter MD FENOFIBRATE 160 MG TABS Take 1 tablet by mouth once a day fenofibrate 27425046266 Emerson Walter MD BRIMONIDINE TARTRATE 0.15 % SOLN 10/09 brimonidine 60398524974 Emerson Walter MD ACETAMINOPHEN ER 650 MG CR-TABS Take 1 tablet by mouth once a day acetaminophen 24682344145 Emerson Walter MD ESCITALOPRAM OXALATE 20 MG TABS Take 1 tablet by mouth every morning escitalopram oxalate 15810853146 Emerson Walter MD ACYCLOVIR 5 % OINT 10/09 acyclovir 21339992551 Emerson Walter MD ESCITALOPRAM OXALATE 10 MG TABS 10/09 escitalopram oxalate 34706951350 Emerson Ramírez 4 wheels For home use. Length of need: 99 months 10/09 Walker - 4 wheels Emerson Walter MD NITROGLYCERIN 0.[address] 2 tablet under tongue single dose nitroglycerin 60805828559 Emerson Walter MD DIPYRIDAMOLE 50 MG TABS dipyridamole 58697473034 Emerson Walter MD Shower Chair For home use. 10/09 Sh[address] Emerson Walter MD TAMSULOSIN HCL 0.4 MG CAPS Take 2 capsule by mouth once a day tamsulosin 84669736195 Emerson Walter MD METOPROLOL TARTRATE 50 MG TABS Take 1 tablet by mouth single dose 10/09 metoprolol tartrate 19589521510 Emerson Walter MD TIMOLOL MALEATE 0.25 % SOLN Place 1 drop into both eyes once a day timolol maleate 52050142862 Emerson Walter MD SENNOSIDES 8.6 MG TABS Take 1 tablet by mouth every other day sennosides 30060270835 Emerson Walter MD DIPYRIDAMOLE 50 MG TABS Take 1 tablet by mouth twice a day 10/09 dipyridamole 91227352663 Emerson Walter MD DIPHENHYDRAMINE HCL 25 MG CAPS Take 2 Capsules (50 mg) by mouth one time for 1 dose. Given per CTA protocol (policy reference #[id number]). 10/09 diphenhydramine hcl 20282895412 Emerson Walter MD PRIMIDONE 50 MG TABS primidone 20843250143 Emerson Walter MD CARBIDOPA-LEVODOPA 25-100 MG TABS 1/2 tablet by mouth as directed : half tab 3x per day at 8 am, 1130 am and 330 pm. Then increase by half tab every week until 2 tabs 3x per day. 11 carbidopa-levodop a 01925758810 Emerson Walter MD GABAPENTIN 300 MG CAPS 10/09 gabapentin 09106363845 Emerson Walter MD BUPROPION HCL ER (XL) 300 MG [id number] bupropion hcl 84186652298 Emerson Walter MD CARBIDOPA-LEVODOPA 25-100 MG TABS 1/2 tablet by mouth as directed : half tab 3x per day at 8 am, 1130 am and 330 pm. Then increase by half tab every week until 2 tabs 3x per day. 10/09 carbidopa-levodop a 87408744847 Emerson Walter MD Walker - 4 wheels For home use. Length of need: 99 months 10/09 Walker - 4 wheels QIEUSER QIEUSER TIMOLOL MALEATE 0.25 % SOLN Place 1 Drop into both eyes once daily. 10/09 timolol maleate 50959801752 QIEUSER QIEUSER SIMVASTATIN 40 MG TABS Take 1 Tablet (40 mg) by mouth at bedtime. 10/09 simvastatin 24155657129 QIEUSER QIEUSER Shower Chair For home use. 10/09 Shower Chair QIEUSER QIEUSER SENNOSIDES 8.6 MG TABS TAKE ONE TABLET BY MOUTH EVERY OTHER DAY 10/09 sennosides 13563161473 QIEUSER QIEUSER PEG 3350 17 GM/SCOOP POWD You may use as little as 1-2 Tbsp daily to stay regular (or as much as 1 capful daily) 10/09 polyethylene glycol 3350 20559945914 QIEUSER QIEUSER OMEPRAZOLE 40 MG CPDR Take 1 Capsule (40 mg) by mouth once daily before a meal. 10/09 omeprazole 09892807309 QIEUSER QIEUSER OLOPATADINE HCL 0.1 % SOLN Place 1 Drop into both eyes two times daily. 10/09 olopatadine 07480457707 QIEUSER QIEUSER NITROGLYCERIN 0.[address] 2 Tablets (0.8 mg) under the tongue one time for 1 dose. Given per CTA protocol (policy reference #[id number]). 10/09 nitroglycerin 18666262526 QIEUSER QIEUSER MONTELUKAST SODIUM 10 MG TABS Take 1 Tablet (10 mg) by mouth at bedtime. 10/09 montelukast 99676412479 QIEUSER QIEUSER METOPROLOL TARTRATE 50 MG TABS Take 1 Tablet (50 mg) by mouth one time for 1 dose. Given per CTA protocol (policy reference #[id number]). 10/09 metoprolol tartrate 05782016707 QIEUSER QIEUSER MEMANTINE HCL 10 MG TABS Take 1 Tablet (10 mg) by mouth two times daily. 10/09 memantine 33118929749 QIEUSER QIEUSER IPRATROPIUM BROMIDE 0.03 % SOLN Inhale 2 Sprays into affected nostril(s) three times daily. [place] dose in each nostril. 10/09 ipratropium bromide 66431153813 QIEUSER QIEUSER FENOFIBRATE 160 MG TABS Take 1 Tablet (160 mg) by mouth once daily with a meal. 10/09 fenofibrate 31757327383 QIEUSER QIEUSER FAMOTIDINE 20 MG TABS Take 1 Tablet (20 mg) by mouth two times daily. 10/09 famotidine 19694643177 QIEUSER QIEUSER ESCITALOPRAM OXALATE 20 MG TABS TAKE ONE TABLET BY MOUTH EVERY MORNING 10/09 escitalopram oxalate 29592804783 QIEUSER QIEUSER DIPHENHYDRAMINE HCL 25 MG CAPS Take 2 Capsules (50 mg) by mouth one time for 1 dose. Given per CTA protocol (policy reference #[id number]). 10/09 diphenhydramine hcl 83685873035 QIEUSER QIEUSER coenzyme q10 100 mg cap Take 1 Capsule (100 mg) by mouth once daily. 10/09 coenzyme q10 100 mg cap QIEUSER QIEUSER cholecalciferol (Vitamin D-3) 2,000 unit capsule Take 2 Capsules (4,000 units) by mouth once daily. 10/09 Vitamin D-3 QIEUSER QIEUSER BRIMONIDINE TARTRATE 0.2 % SOLN Place 1 Drop into both eyes two times daily. 10/09 brimonidine 81174917770 QIEUSER QIEUSER ASPIRIN 325 MG TBEC Take 1 Tablet (325 mg) by mouth once daily with a meal. 10/09 aspirin 38489704227 QIEUSER QIEUSER AMLODIPINE BESYLATE 5 MG TABS Take 1 Tablet (5 mg) by mouth once daily. 10/09 amlodipine 68553963138 QIEUSER QIEUSER ACETAMINOPHEN ER 650 MG CR-TABS TAKE ONE TABLET BY MOUTH ONCE DAILY 10/09 acetaminophen 35485854681 QIEUSER QIEUSER TAMSULOSIN HCL 0.4 MG CAPS TAKE 2 CAPSULS BY MOUTH ONCE DAILY AFTER A MEAL. 10/09 tamsulosin 42840718663 QIEUSER QIEUSER PRIMIDONE 50 MG TABS Take 1 Tablet (50 mg) by mouth at bedtime. 10/09 primidone 23974841240 QIEUSER QIEUSER GABAPENTIN 300 MG CAPS TAKE ONE CAPSULE BY MOUTH EVERY MORNING, TAKE ONE CAPSULE AT NOON AND 2 CAPS AT BEDTIME gabapentin 56893849223 QIEUSER QIEUSER DIPYRIDAMOLE 50 MG TABS TAKE ONE TABLET BY MOUTH TWICE A DAY 10/09 dipyridamole 78053110750 QIEUSER QIEUSER BUPROPION HCL ER (XL) 300 MG [id number] Take 1 Tablet (300 mg) by mouth once daily. 10/09 bupropion hcl 64867423611 QIEUSER QIEUSER SODIUM CHLORIDE 0.9 % SOLN Inject 250 mL intravenous one time for 1 dose. Given per CTA protocol (policy reference #[id number]). 10/09 sodium chloride 0.9 % 22057112045 QIEUSER QIEUSER INDERAL LA 60 MG [id number] 1 po qam 10/09 PROPRANOLOL HCL 40453705624 Kp Jimenez Tarrel DO PROPRANOLOL HCL 20 MG TABS 1-2 po bid 04/15 PROPRANOLOL HCL 95251095078 Kp Jimenez Tarrel DO MYSOLINE 50 MG TABS 1 po bid prn tremor 10/09 PRIMIDONE 83414989748 Kp Hdzrel DO PROPRANOLOL HCL 20 MG TABS 1-2 po bid 12/11 PROPRANOLOL HCL 79480539158 Kp Hdzrel DO GABAPENTIN 300 MG CAPS 10/09 GABAPENTIN 38739749107 Kp Jimenez Tarrel DO TAMSULOSIN HCL 0.4 MG CAPS 10/09 TAMSULOSIN HCL 04578052585 Kp Hdzrel DO BRIMONIDINE TARTRATE 0.15 % SOLN 10/09 BRIMONIDINE TARTRATE 44273342049 Kp Hdzrel DO PRIMIDONE 50 MG TABS 10/09 PRIMIDONE 79672390766 Kp Jimenez Tarrel DO ESCITALOPRAM OXALATE 10 MG TABS 10/09 ESCITALOPRAM OXALATE 31419993148 Kp Hdzrel DO BUPROPION HCL ER (XL) 300 MG [id number] 10/09 BUPROPION HCL 00359256229 Kp Hdzrel DO ACYCLOVIR 5 % OINT 10/09 ACYCLOVIR 74969673722 Kp Hdzrel DO GEMFIBROZIL 600 MG TABS 10/09 GEMFIBROZIL 13123353578 Kp Orozco DO DIPYRIDAMOLE 50 MG TABS 10/09 DIPYRIDAMOLE 38647169472 Kp Orozco DO Medications Administered No information available. Allergies, Adverse Reactions, Alerts Allergy Name Reaction Description Start Date Severity Statu s Provider VENOM-WASP Hives Mild Active José Jar ecki TERAZOSIN Dizziness Mild Active José Jare cki LOSARTAN Cough Critical Active José Jare cki LISINOPRIL Cough Mild Active José Jar ecki DONEPEZIL Other - Describe In Comment Field Critical Active José Jarecki DIGOXIN Other - Describe In Comment Field Mild Active José Jarecki DIATRIZOATE ALLERGEN Angioedema Mild Active José Jarecki BETA-BLOCKERS (BETA-ADRENERGIC BLOCKING AGTS) Bradycardia Mild Active José Jarecki ADHESIVE TAPE-SILICONES Contact Dermatitis Mild Active José Jarecki ADHESIVE TAPE Other - Describe In Comment Field Mild Active José Jarecki Results Date Name Value Unit Range Flag Description Office Visit: TREMOR, LAST S N, 2005* 02/20/15 10:49- 02/20/15 10:49 REFERR... SMOK STATUS Former smoker Tob acco smoking status Internal Other: Authorizatio n - OBS PTSTAUTHDT Done PT Startin g Authorization Date Office Visit: Office Visit R dhruv for visit alzheimer's disease Previous Fax MEDS REVIEW Done Documenta tion of current medications (procedure) Internal Other: Authorizatio n - OBS AUTHBENEFIT Yes Authoriza tion: Assignment of Benefits and Payment Agreement [email or web address] Yes Authorizat ion: Authorization for [facility] to leave messages, voicemail, send text messages, send emails AUTHRELHCARE Yes Authoriz ation: Release/Retrieval of Information to/from Healthcare Facilities, Pharmacy Benefit Payers and Providers ROIAUTHOTHER Yes Authoriz ation: Release of Information - Authorize Others/Insurance - Payment and Healthcare Operations [email or web address] Yes Authoriza tion: Release of Information - Authorize [facility] - Payment and Healthcare Operations AUTHPRIVPRAC Yes Authoriz ation: Notice of privacy practices HIECONSENT Yes Consent To Release information to the Health Information Exchange (HIE) Plan of Care Type Date Detail Appointment 01:30 PM Shahnaz Self PA-C, [address], [address], [place], [address], Pending order Follow up with N eurologist or JACK Pending order Follow up with N eurologist or JACK Procedures Code Procedure Name Date Entry Date [id number] Documentation of current medicatio ns CPT-67728 Neuropsych assmnt w/ prov 3 hr CPT-5842168 Neuropsych assmnt w/ tech 2 hr Vital Signs Date Name Value Unit Description Heart Rate 66 /min pulse rate Height 72 [in_us] height E&M BMI (Body Mass Index) 25.86 kg/m2 Bod y Mass Index (Ratio) Weight Measured 190 [lb_av] weight E& M Immunizations No information available. Advance Directives No information available.
--- OUTSIDE RECORDS SUMMARY | 2024-10-15 13:48 | XMS_ITS | Clinical Summary ---
Author Organization [facility] Address [place], [place] [address] Care Team Providers Care Marina Manager Name Role Phone Aura Carpenter MD Unavailable [phone] Adelaida Whaley Unavailable [phone] Geeta Manning MD Primary Care Provide r Yamile Castellon PharmD Unavailable Allergies Active Allergy Reactions Criticality Noted Date Comments Adhesive Tape Other - Describe In Comment Field bandaid strips Blistering Adhesive Tape-Silicones Contact Dermatitis 07/02/2023 Beta-Blockers (Beta-Adrenergic Blocking Agts) Bradycardia Diatrizoate Allergen Angioedema PT WAS PREMEDICATED AT THE HOSP 07/15/24. Digoxin Other - Describe In Comment Field 09/14/2016 Bipolar symptoms and vision changes Donepezil Other - Describe In Comment Field,Confusion Medium 12/17/2020 Confusion and vision problems Lisinopril Cough 11/12/2006 Losartan Cough Medium 05/25/2021 Terazosin Dizziness 11/10/2006 intol dizzy Venom-Wasp Hives 03/15/2007 Medications brimonidine (ALPHAGAN) 0.2 % ophthalmic solution Place 1 Drop into both eyes two times daily. Active timoloL maleate (TIMOPTIC) 0.25 % ophthalmic solution Place 1 Drop into both eyes once daily. 3 Active omeprazole (PRILOSEC) 40 mg Delayed-Release capsuleIndications :Chronic GERD Take 1 Capsule (40 mg) by mouth once daily before a meal. 90 Capsule 3 4 Active montelukast (SINGULAIR) 10 mg tabletIndications: Seasonal allergic rhinitis, unspecified trigger Take 1 Tablet (10 mg) by mouth at bedtime. 90 Tablet 3 4 Active olopatadine (PATANOL) 0.1 % ophthalmic solutionIndication s:Allergic conjunctivitis of both eyes Place 1 Drop into both eyes two times daily. 5 mL 5 4 Active memantine (NAMENDA) 10 mg tabletIndications: Late onset Alzheimer's disease without behavioral disturbance (HC),Moderate dementia without behavioral disturbance (HC) Take 1 Tablet (10 mg) by mouth two times daily. 180 Tablet 3 4 Active buPROPion (WELLBUTRIN XL) 300 mg Extended-Release tabletIndications: Bipolar affective disorder in remission (HC) Take 1 Tablet (300 mg) by mouth once daily. 90 Tablet 3 4 Active aspirin enteric coated (ECOTRIN) 325 mg tabletIndications: Peripheral vascular disease (HC),Disorder of arteries and arterioles (HC) Take 1 Tablet (325 mg) by mouth once daily with a meal. 90 Tablet 3 4 Active simvastatin (ZOCOR) 40 mg tabletIndications: Mixed hyperlipidemia,Per ipheral vascular disease (HC) Take 1 Tablet (40 mg) by mouth at bedtime. 90 Tablet 3 4 Active amLODIPine (NORVASC) 5 mg tabletIndications: Essential hypertension Take 1 Tablet (5 mg) by mouth once daily. 90 Tablet 3 4 Active primidone (MYSOLINE) 50 mg tabletIndications: Essential tremor Take 1 Tablet (50 mg) by mouth at bedtime. 90 Tablet 3 4 Active tamsulosin 0.4 mg capsuleIndications :Benign non-nodular prostatic hyperplasia with lower urinary tract symptoms TAKE 2 CAPSULS BY MOUTH ONCE DAILY AFTER A MEAL. 180 Capsule 3 4 Active cholecalciferol (Vitamin D-3) 2,000 unit capsuleIndications :Vitamin D deficiency Take 2 Capsules (4,000 units) by mouth once daily. 180 Capsule 3 4 Active gabapentin (NEURONTIN) 300 mg capsuleIndications :Bipolar affective disorder in remission (HC) TAKE ONE CAPSULE BY MOUTH EVERY MORNING, TAKE ONE CAPSULE AT NOON AND 2 CAPS AT BEDTIME 360 Capsule 11 4 Active escitalopram oxalate (LEXAPRO) 20 mg tabletIndications: Bipolar affective disorder in remission (HC),Depression with anxiety Take 1 Tablet (20 mg) by mouth once daily in the morning. 90 Tablet 1 4 Active sennosides (Senna) 8.6 mg tabletIndications: Chronic constipation TAKE ONE TABLET BY MOUTH EVERY OTHER DAY 45 Tablet 2 4 Active acetaminophen SR (TYLENOL ARTHRITIS) 650 mg Extended-Release tabletIndications: Muscle ache Take 1 Tablet (650 mg) by mouth every 24 hours. 90 Tablet 3 4 Active dipyridamole (PERSANTINE) 50 mg tabletIndications: Peripheral vascular disease (HC),Disorder of arteries and arterioles (HC) TAKE ONE TABLET BY MOUTH TWICE A DAY 180 Tablet 3 4 Active fluticasone (50 mcg per actuation) nasal solution (FLONASE)Indicatio ns:Seasonal allergic rhinitis, unspecified trigger INSTILL 2 SPRAYS IN EACH NOSTRIL ONCE DAILY 48 g 3 5 Active coenzyme q10 100 mg capIndications:Mix ed hyperlipidemia,Mus teresa ache Take 1 Capsule (100 mg) by mouth once daily. 90 Capsule 3 4 025 Discontin ued(*Med complete/ Regimen complete/ Level of care change) Active Problems Problem Noted Date Diagnosed Date Adjustment disorder with anxiety 05/11/2024 Paroxysmal atrial fibrillation 12/15/2023 Superficial thrombophlebitis of left leg 024 Alzheimer's disease 06/17/2023 Late onset Alzheimer's disea se without behavioral disturbance 12/20/2017 Cognitive impairment 01/18/2017 Overview (01/18/2017): DX February 2015 Montr al Cognitive Assessment (MOCA-B) score-January 17, 2017 is 17/30 Moderate dementia without behavioral disturbance 01/18/2017 Overview (01/18/2017): Dx: Dec, 2016 Paroxysmal SVT (supraventricular tachycardia) Vitamin D deficiency 03/10/2016 Bipolar affective disorder in remission 07/07/20 15 Depression with anxiety 04/30/2015 Chronotropic incompetence with sinus node dysfun ction 06/13/2014 S/P dual chamber permanent p acemaker implantation on 06/13/2014 06/13/2014 GERD (gastroesophageal reflux disease) 4 Family history of malignant neoplasm of gastrointestinal tract 03/05/2013 Benign non-nodular prostatic hyperplasia with lower urinary tract symptoms 09/15/2010 Impaired fasting glucose 01/29/2010 Acquired hypothyroidism 10/11/2007 Overview (10/11/2007): TSH 7.03 on 09/28/07 Hematuria 10/03/2007 Overview (10/03/2007): likely due to combination of IV heparin and coumadin Chronic GERD 10/02/2007 Overview (12/20/2007): Right internal carotid artery 70-90% (nearer to 70%). Left carotid <50% MRA of carotids 10/02/07 50% on R, 40% on L Needs yearly surveilance BLUE TOE SYNDROME 09/28/2007 Overview (12/20/2007): Hypercoagulable workup-NEGATIVE studies include: Leiden Factor V, Factor II, Cardiolipin(IgA,IgG,IgM) and Cryoglobulin MRA-suprarenal atheroma, diffuse mild to moderate bilateral SFA disease, moderate left TP trunk disease, 2 vessel runoff bilaterally with occlusion of both MARITA Echo-negative bubble study, normal LVEF at 65%, ascending aorta at the ULN, minimal valvular abnormalities, LVH, MAGED AZEB-normal bilaterally PPGs-diminished waveforms in multiple toes in both feet He should stay on Coumadin for a total of 6-9 months(starting in Oct 06) HX OF TOBACCO USE - REMOTE 09/28/2007 PERIPHERAL ARTERIAL DISEASE 09/28/2007 Overview (09/28/2007): - MRA lower extemities 09/28/2007: ~5mm protruding suprarenal atheroma, no renal artery stenosis, no inflow disease. Diffuse bilateral mild/mod SFA disease. Bilateral 2 V runoff. 100% anterior tibials bilaterally. Focal moderate left tibio- peroneal trunk. - Normal AZEB 09/28/2007 Allergic rhinitis, cause unspecified 07/14/2007 Unspecified essential hypertension Mixed hyperlipidemia Unspecified glaucoma Essential tremor Benign neoplasm of colon Hemorrhoids, internal Polyp of colon Resolved Problems Problem Noted Date Diagnosed Date Resolved Date PERIPHERAL ARTERIAL DISEASE 05/30/2018 05/30/2018 Dementia without behavioral disturbance 04/01/2017 04/01/2017 Family history of malignant neoplasm of gastrointestinal tract 04/05/2016 04/06/2022 Cognitive impairment 03/10/2015 017 Overview (03/10/2015): Dx: February 2015 Stable angina 10/10/2009 12/07/2021 Bipolar disorder, unspecified 07/07/2015 Encounters Date Type Department Care Team Description 10/11/2024 Refill [facility] [address] [facility] [place] [address] Geeta Manning MD Refill Request (Fluticasone (50 Mcg Per Actuation) Nasal) 10/08/2024 11:00 AM [facility] Ancillary Procedure [address] [place] [address] 10/08/2024 Travel 09/18/2024 11:20 AM [facility] [employer]NAG[facility] Office Visit [address] [place] [address] Geeta Manning MD Follow Up (Discuss results and medication./Dr. Paris 09/13/24) 09/18/2024 Travel 09/13/2024 10:30 AM [facility] [employer]ENT MANAGEMENT Office Visit [facility] [address] [facility] [place] [address] Janice Paris MD Follow Up (PAD ) 09/12/2024 11:30 AM [facility] [employer]ENT MANAGEMENT Orders Only [address] [place] [address] Lab, [facility] 09/12/2024 10:30 AM [facility] [employer]ENT MANAGEMENT Pharmacist Medication Management [address] [place] [address] Yamile Castellon PharmD Pharmacist Medication Management (CMR initial - provider referral - in-clinic) 09/12/2024 Travel 09/10/2024 10:00 AM [facility] [employer] MANAGEMENT Ancillary Procedure [facility] [address] [place] [address] 09/10/2024 Travel 08/16/2024 Patient Outreach [facility] Care Management - Advanced Care Team [address] [place] [address] Lolly Lanza Medication Management (COMPREHENSIVE MEDICATION REVIEW - PROVIDER REFERRAL - unsure if covered) 08/14/2024 10:55 AM [facility] [employer]NAGEMENT Office Visit [facility] [address] [place] [address] Geeta Manning MD Medicare ANNUAL (subsequent) Visit (84 yo Male/Cough with a little phelm /Concerned about new diagnosis from Dr. Walter/Dr. Walter prescribed Carbidopa 25 mg-Levodopa 100 mg but went to fill and was told it was cancelled.) 08/14/2024 Travel 08/07/2024 Travel 07/31/2024 2:40 PM [facility] [employer]G[facility] Office Visit [facility] [address] [place] [address] Geeta Manning MD ER Follow up (07/15/24 Altered Mental Status/DC instructions mentioned antibiotics, none were ordered./CT to be repeated in September do to lung nodules seen/Also has had basel cells removed from his nose/Nose still runs) 07/31/2024 Travel 07/30/2024 Orders Only [facility] Scanner 1 scan: (1-Ord) [facility] 07/15/2024 Orders Only [facility] Scanner 1 scan: (1-Ord) [facility], CT ANGIO CHEST PE PROTOCOL, 07/15/2024 07/15/2024 Orders Only [facility] Scanner 1 scan: (1-Ord) [facility], CT CHEST ABDOMEN PELV WO CON, 07/15/2024 07/15/2024 Orders Only [facility] Scanner 1 scan: (1-Ord) [place], CT HEAD/BRAIN WO CON, 07/15/2024 from Last 3 Months Immunizations Name Administration Dates Next Due AMB Influenza, IIV4 PF (=>6 mos Flulaval,Fluzone Fluarix)(Flu Clinic Only) 06/13/2019 COVID-19 VACCINE SPIKEVAX (M ODERNA 50MCG/0.5ML) 12YO+ PFS 11/15/2023 COVID-19 vaccine (Pfizer-Bio NTech 30mcg/0.3mL) 12YO+ BIVALENT PF, MDV 05/19/2022 COVID-19 vaccine (Pfizer-Bio NTech 30mcg/0.3mL) 12YO+ JOSE CRUZ-SUCROSE PF, MDV 12/07/2021 COVID-19 vaccine (Striped Sail-Bio NTech 30mcg/0.3mL) PF, MDV 11/04/2020,10/14/2020 Influenza A (H1N1), Inactiva mleissa (Age >=3 Years) 09/03/2009 Influenza, High-dose Quadriv alent Inactivated 05/17/2023,05/13/2021,05/07/2020 Influenza, IIV3 (Age >=3 years) 04/29/20 16,04/29/2015,05/14/2010,05/09,05/29/2007,06/08/2004,06/15/2003 Influenza, IIV4 05/22/2014 Influenza, Inactivated AIIV4 (Age 65+ Years) Preserv Free 05/24/2022 Influenza, Inactivated IIV3 (Age 65+ Years) Preserv Free 05/24/2024,05/01/2018,05/29/2017 Pneumococcal Conj 20-valent (Prevnar 20) 08/14/2024 Pneumococcal Poly,23-Valent (Pneumovax) 04/24/2008 Pneumococcal conj 13-Valent (Prevnar 13) 05/25/2016 RSV, Recombinant ADJ Reconst ituted (Arexvy 120MCG/0.5mL) 08/31/2023 Td (Age >=7 Years) 04/25/2006 Tdap 05/25/2016 Zoster (Shingrix-RZV, recombinant) 03/19/2019,,11/20/2018 Zoster (Zostavax-ZVL, live) 02/24/2012 Family History Medical History Relation Name Comments Blood Disease Father myelogenous le ukemia Cancer-colon Mother colon Relation Name Status Comments Father Mother colon cancer Social History Tobacco Use Types Packs/Day Years Used Date Smoking Tobacco: Former Cigarettes 2 20 0 [birth year]/29/1951 - 08/29/1971 Smokeless Tobacco: Never Tobacco Cessation:Counseling Given: Yes Alcohol Use Standard Drinks/Week Comments No 0 (1 standard drink = 0.6 oz pur e alcohol) PHQ-2 Answer Date Recorded PHQ-2 TOTAL SCORE 2 08/14/2024 Social Connections Answer Date Recorded Do you often feel lonely or isolated from those around you? 0 07/31/2024 Financial Resource Strain Answer Date R ecorded Difficulty of Paying Living Expenses 3 07/31/2024 Difficulty of Paying Living Expenses Not on file 07/31/2024 Food Insecurity Answer Date Recorded Do you worry your food will run out before you are able to buy more? 1 07/31/2024 Transportation Needs Answer Date Record ed Does lack of transportation keep you from medica l appointments? 1 07/31/2024 Does lack of transportation keep you from work, meetings or getting things that you need? 1 07/31/2024 Housing Stability Answer Date Recorded What is your housing situation today? 1 07/31/2024 Utilities Answer Date Recorded Do you have trouble paying f or utilities (for example, heat, electricity, water, phone)? 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 Not on file Not on shankar [employer] Obstetrics History Last Filed Vital Signs Vital Sign Reading Time Taken Comments Blood Pressure 115/71 09/18/2024 12:16 PM [facility] [employer] [employer]NAGEMENT Pulse 75 09/18/2024 12:16 PM [facility] [employer] [employer]G[facility] Temperature 36.6 C (97.9 F) 04/03/2020 2:13 PM CDT Respiratory Rate 20 03/17/2020 2:56 PM CDT Oxygen Saturation 98% 09/18/2024 12:16 PM VP [employer]ENT MANAGEMENT Inhaled Oxygen Concentration - - Weight 93.4 kg (206 lb) 09/18/2024 12:16 PM VP [employer]ENT MANAGEMENT Height 179.1 cm (5' 10.5) 12/27/2023 1:32 PM CD T Body Mass Index 29.14 12/27/2023 1:32 PM CDT Plan of Treatment Upcoming Encounters Date Type Department Care Team (Late st Contact Info) Description 10/17/2024 11:00 AM VP [employer]ENT MANAGEMENT Office Visit [facility] [address] [place] [address] Clark Simmons DPM [address] [place] [address] 12/11/2024 Cardiac Device Check [facility] [phone] 12/18/2024 10:55 AM CDT Office Visit [facility] [address] [place] [address] Geeta Manning MD [address] [place] [address] Health Maintenance Due Date Last Done Comments BMI (ht and wt on same day) for age 18+ 12/26/2024 12/27/2023, 11/15/2023, 12/14/2022, Additional history exists Medicare Wellness for age 65+ 08/15/2025, 12/14/2022, 12/07/2021, Additional history exists Depression screening for age 12+ 08/16/2025 08/16/2024, 08/14/2024, 11/16/2023, Additional history exists Tetanus booster 05/25/2026 05/25/2016, 04/25/2006 Tdap Completed 05/25/2016 Zoster (shingles) series for age 50+ Completed 03/19/2019, 11/20/2018, 11/20/2018, Additional history exists RSV vaccine for adults or Completed 08/31/2023 COVID-19 vaccine series Completed 05/24/20 24, 11/15/2023, 06/06/2023, Additional history exists Influenza for age 65+ Completed 05/24/2024 , 05/17/2023, 05/24/2022, Additional history exists Pneumococcal series for age 50+ Completed 08/14/2024, 05/25/2016, 04/24/2008 Medical Devices Implanted Type Area Drop Count Associate Device Identifier Shelf Expiration Date Model / Serial / Lot Dual Chamber Pacemaker Implanted:05/29 by Jacques Guthrie MD (Quantity not on file) Standard Pacemaker Medtronic ADAPTA [id number] / [id number] / Procedures Procedure Name Priority Date/Time Associated Diagnosis Comments CT CHEST WO Routine 10/08/2024 11:14 AM VP [facility]ENT MANAGEMENT Lung nodule LIPID PANEL W REFLEX MEASURED LDL Routine 09/12/2024 12:12 PM [facility] [employer] MANAGEMENT Mixed hyperlipidemia BASIC METABOLIC PANEL Routine 09/12/2024 12:12 PM [facility] [employer] MANAGEMENT Essential hypertension PSA TOTAL Routine 09/12/2024 12:12 PM [facility] [employer] MANAGEMENT Prostate cancer screening US ARTERIAL LOWER EXTREMITY W AZEB BILATERAL Routine 09/10/2024 11:09 AM VP [employer]ALENT MANAGEMENT PAD (peripheral artery disease) (HC) SCAN-EYE EXAM 07/30/2024 12:00 AM VP [employer]ALENT MANAGEMENT SCAN-CT INTERPRETATION 4 12:00 AM [facility]NAGEMENT SCAN-CT INTERPRETATION 4 12:00 AM [facility]NAGEMENT SCAN-CT INTERPRETATION 4 12:00 AM VP [employer]ALENT MANAGEMENT from Last 3 Months Results * CT CHEST WO (10/08/2024 11:14 AM VP [employer]ALENT MANAGEMENT) Anatomical Region Laterality Modality CHEST, THORAX, HEART Computed To mography 10/08/2024 1:19 PM [facility] MANAGEMENT Narrative 10/08/2024 1:19 PM [facility] [employer] [employer]NAGEMENT For Patients: As a result of the Century Cures Act, medical imaging exams and procedure reports are released immediately into your electronic medical record. You may view this report before your referring provider. If you have questions, please contact your health care provider. Indication: Follow-up lung nodule Technique: Noncontrast CT chest Please note that all CT scans at this facility use dose modulation, iterative reconstruction, and/or weight-based dosing when appropriate to reduce radiation dose to as low as reasonably achievable. Comparison: Outside CT 07/15/2024 Findings: Linear subsegmental scarring in both lower lobes noted. No pleural effusion or pulmonary edema. No pneumothorax. Thyroid is unchanged. Vascular calcifications. No adenopathy. Upper abdomen unremarkable. A few scattered small calcified granulomas within the lungs. Stable nodule within the right upper lobe with partial cavitation. The subsolid portion measures 16 millimeters, as before. Impression: Stable nodule within the right upper lobe with partial cavitation. Please note that all CT scans at this facility use dose modulation, iterative reconstruction, and/or weight-based dosing when appropriate to reduce radiation dose to as low as reasonably achievable. Dictated by Redd Gonsalves MD @ 10/08/2024 1:19:34 PM (Electronically Signed) Procedure Note Redd Gonsalves MD - 10/08/2024 For Patients: As a result of the Cures Act, medical imagingexams and procedure reports are released immediately into your electronicmedical record. You may view this report before your referring provider.If you have questions, please contact your health care provider. Indication: Follow-up lung nodule Technique: Noncontrast CT chest Please note that all CT scans at this facility use dose modulation,iterative reconstruction, and/or weight-based dosing when appropriate toreduce radiation dose to as low as reasonably achievable. Comparison: Outside CT 07/15/2024 Findings: Linear subsegmental scarring in both lower lobes noted. No pleuraleffusion or pulmonary edema. No pneumothorax. Thyroid is unchanged.Vascular calcifications. No adenopathy. Upper abdomen unremarkable. A fewscattered small calcified granulomas within the lungs. Stable nodulewithin the right upper lobe with partial cavitation. The subsolid portionmeasures 16 millimeters, as before. Impression: Stable nodule within the right upper lobe with partial cavitation. Please note that all CT scans at this facility use dose modulation,iterative reconstruction, and/or weight-based dosing when appropriate toreduce radiation dose to as low as reasonably achievable. Dictated by Redd Gonsalves MD @ 10/08/2024 1:19:34 PM (Electronically Signed) us Geeta Manning MD CT Final Result * LIPID PANEL W REFLEX MEASURED LDL (09/12/2024 12:12 PM [facility] [employer]NAGEMENT) CHOLESTEROL, TOTAL 144 <200 mg/dL [facility] HDL CHOLESTEROL 52 > OR = 40 mg/dL [facility] TRIGLYCERIDES 121 <150 mg/dL [facility] LDL-CHOLESTEROL 72 mg/dL (calc) [facility] Comment: Reference range: <100 Desirable range <100 mg/dL for primary prevention; <70 mg/dL for patients with CHD or diabetic patients with > or = 2 CHD risk factors. LDL-C is now calculated using the Chris calculation, which is a validated novel method providing better accuracy than the Friedewald equation in the estimation of LDL-C. Milton SS et al. MILENA. 2013;310(19): 9727-9873 (http://education.[employer]/faq/SZU712) CHOL/HDLC RATIO 2.8 <5.0 (calc) [facility] NON HDL CHOLESTEROL 92 <130 mg/dL (calc) [facility] Comment: For patients with diabetes plus 1 major ASCVD risk factor, treating to a non-HDL-C goal of <100 mg/dL (LDL-C of <70 mg/dL) is considered a therapeutic option. Blood BLOOD SPECIMEN / Unknown 09/12/2024 12:12 PM [facility] [employer] [employer]NAGEMENT 09/12/2024 12:13 PM [facility] [employer] MANAGEMENT us Geeta Manning MD CHEMISTRY Final Result [facility] [address] [place] [address], [facility] [address] [place] [address] * PSA TOTAL (09/12/2024 12:12 PM [facility] [employer] MANAGEMENT) PSA, TOTAL 0.98 < OR = 4.00 ng/mL [facility] Comment: The total PSA value from this assay system is standardized against the WHO standard. The test result will be approximately 20% lower when compared to the equimolar-standardized total PSA (Elissa Maryann). Comparison of serial PSA results should be interpreted with this fact in mind. This test was performed using the Siemens chemiluminescent method. Values obtained from different assay methods cannot be used interchangeably. PSA levels, regardless of value, should not be interpreted as absolute evidence of the presence or absence of disease. Blood BLOOD SPECIMEN / Unknown 09/12/2024 12:12 PM [facility] [employer]NAGEMENT 09/12/2024 12:13 PM [facility] [employer]NAGEMENT Geeta Manning MD CHEMISTRY Final Result [facility] [address] [place] [address], [facility] [address] [place] [address] * BASIC METABOLIC PANEL (09/12/2024 12:12 PM [facility] [employer]NAGEMENT) GLUCOSE 86 65 - 99 mg/dL [facility] Comment: Fasting reference interval UREA NITROGEN (BUN) 23 7 - 25 mg/dL [facility] CREATININE 1.12 0.70 - 1.22 mg/dL [facility] EGFR 64 > OR = 60 mL/min/1. 73m2 [facility] BUN/CREATININE RATIO SEE NOTE: 6 - 22 (calc) [facility] Comment: Not Reported: BUN and Creatinine are within reference range. SODIUM 140 135 - 146 mmol/L [facility] POTASSIUM 4.4 3.5 - 5.3 mmol/L [facility] CHLORIDE 106 98 - 110 mmol/L [facility] CARBON DIOXIDE 27 20 - 32 mmol/L [facility] ELECTROLYTE BALANCE 7 7 - 17 mmol/L (calc) [facility] CALCIUM 9.2 8.6 - 10.3 mg/dL [facility] Blood BLOOD SPECIMEN / Unknown 09/12/2024 12:12 PM [facility] [employer]NAGEMENT 09/12/2024 12:13 PM [facility] [employer]NAGEMENT Geeta Manning MD CHEMISTRY Final Result [facility] [address] [place] [address], [facility] [facility] [address] [place] [address] * US ARTERIAL LOWER EXTREMITY W AZEB BILATERAL (09/10/2024 11:09 AM [facility] [employer] MANAGEMENT) Anatomical Region Laterality Modality LEGS Ultrasound 09/10/2024 10:0 4 AM [facility] [employer]NAGEMENT Narrative 09/10/2024 6:15 PM [facility] [employer]NAGEMENT VASCULAR ULTRASOUND REPORT MEKHI MCCABE : 1940 Study Date: 09/10/2024 10:04:26 AM Age: 84 years Tech: RANDA Gender: M Referring MD: JANICE PARIS Site: [facility] Study performed: Lower extremity duplex US, resting AZEB, (bilateral). Indication for study: Follow-up known PAD Study Quality: Good TECHNIQUE: Lower/upper extremity arteries were examined per exam protocol by duplex ultrasound, color-flow and spectral Doppler. Peak systolic velocities (PSV), Doppler waveform quality, velocity ratios and vessel size in cm, were documented at protocol specific sites. Physiologic data including segmental pressures, ankle/brachial index (AZEB), digit PPG recordings, laser Doppler flowmetry, transcutaneous oximetry, and digit temperatures were documented at sites per exam protocol and test requirements. IMPRESSION: 1. Resting ankle-brachial index is moderately reduced on the right at 0.58 and is moderately reduced on the left at 0.74. 2. Evaluation of the lower right extremity shows 75-99% stenosis in the profunda femoral artery. 3. 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 Evaluation of the lower left extremity shows 50-74% stenosis in the distal common femoral artery. 5. bilateral DP and distal peroneal arteries are occluded COMPARISON: Compared to prior study 07-11-2023, there is no significant change. FINDINGS: There is 75-99% stenosis in the right profunda femoral artery. There is 50-74% stenosis in the left distal common femoral artery. + + + + + +--------+-----+ RIGHT Velocity cm/s PRE POST Phasicity Stenosis Ratio Velocity Velocity cm/s cm/s Phasicity Phasicity + + + + + +--------+-----+ INDUSTRIAL SOCIOLOGIST PRX 43 monophasic + + + + + +--------+-----+ INDUSTRIAL SOCIOLOGIST DST 98 monophasic + + + + + +--------+-----+ PFA 183 43 70 stenotic 75-99% 4.3 monophasic monophasic + + + + + +--------+-----+ SFA PRX 0 occluded + + + + + +--------+-----+ SFA PRX MID 0 occluded + + + + + +--------+-----+ SFA MID 0 occluded + + + + + +--------+-----+ SFA MID DST 64 monophasic + + + + + +--------+-----+ SFA DST 13 monophasic + + + + + +--------+-----+ PORTER PRX 31 monophasic + + + + + +--------+-----+ PORTER DST 18 monophasic + + + + + +--------+-----+ INSTRUCTOR KINDERGARTEN DST 10 monophasic + + + + + +--------+-----+ SONIA DST 0 occluded + + + + + +--------+-----+ DPA 0 occluded + + + + + +--------+-----+ + + + + + +--------+-----+ LEFT Velocity cm/s PRE POST Phasicity Stenosis Ratio Velocity cm/s Velocity Phasicity cm/s Phasicity + + + + + +--------+-----+ INDUSTRIAL SOCIOLOGIST PRX 91 multiphasic + + + + + +--------+-----+ INDUSTRIAL SOCIOLOGIST DST 222 91 111 stenotic 50-74% 2.4 multiphasic multiphasic + + + + + +--------+-----+ PFA 77 multiphasic + + + + + +--------+-----+ SFA PRX 100 multiphasic + + + + + +--------+-----+ SFA PRX 43 monophasic MID + + + + + +--------+-----+ SFA MID 66 multiphasic + + + + + +--------+-----+ SFA DST 68 multiphasic + + + + + +--------+-----+ PORTER PRX 27 multiphasic + + + + + +--------+-----+ PORTER DST 23 monophasic + + + + + +--------+-----+ INSTRUCTOR KINDERGARTEN DST 22 monophasic + + + + + +--------+-----+ SONIA DST 0 occluded + + + + + +--------+-----+ DPA 0 occluded + + + + + +--------+-----+ Criteria: Stenosis V. Ratio Mild <50% <2.0 Moderate 50-74% > or = 2.0 Severe 75-99% > or = 4.0 Occluded 100% no detectable flow Pressures +-----+ +--------+ +-----+ RIGHT (mmHg) LEFT (mmHg) +-----+ +--------+ +-----+ Index 132 Brachial 130 Index +-----+ +--------+ +-----+ 0.58 76 INSTRUCTOR KINDERGARTEN 98 0.74 +-----+ +--------+ +-----+ 0.00 0 DPA 0 0.00 +-----+ +--------+ +-----+ Get Mondragon MD. Electronically signed on 09/10/2024 6:15:38 PM This study was performed and interpreted by a service accredited by the Intersocietal Accreditation Commission (IAC/Vascular), [email or web address] Report generated by [employer]. Final Procedure Note Get Mondragon MD - 09/10/2024 VASCULAR ULTRASOUND REPORT MEKHI MCCABE : 1940 Study Date: 09/10/2024 10:04:26 AM Age: 84 years Tech: BSG Gender: M Referring MD: JANICE PARIS Site: [facility] Study performed: Lower extremity duplex US, resting AZEB,(bilateral). Indication for study: Follow-up known PAD Study Quality: Good TECHNIQUE: Lower/upper extremity arteries were examined per exam protocol by duplexultrasound, color-flow and spectral Doppler. Peak systolic velocities(PSV), Doppler waveform quality, velocity ratios and vessel size in cm,were documented at protocol specific sites. Physiologic data includingsegmental pressures, ankle/brachial index (AZEB), digit PPG recordings,laser Doppler flowmetry, transcutaneous oximetry, and digit temperatureswere documented at sites per exam protocol and test requirements. IMPRESSION: 1. Resting ankle-brachial index is moderately reduced on the right at0.58 and is moderately reduced on the left at 0.74. 2. Evaluation of the lower right extremity shows 75-99% stenosis in theprofunda femoral artery. 3. 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 Evaluation of the lower left extremity shows 50-74% stenosis in thedistal common femoral artery. 5. bilateral DP and distal peroneal arteries are occluded COMPARISON: Compared to prior study 07-11-2023, there is no significant change. FINDINGS: There is 75-99% stenosis in the right profunda femoral artery. There is 50-74% stenosis in the left distal common femoral artery. + + + + + +--------+-----+ RIGHT Velocity cm/s PRE POST Phasicity Stenosis Ratio Velocity Velocity cm/s cm/s Phasicity Phasicity + + + + + +--------+-----+ INDUSTRIAL SOCIOLOGIST PRX 43 monophasic + + + + + +--------+-----+ INDUSTRIAL SOCIOLOGIST DST 98 monophasic + + + + + +--------+-----+ PFA 183 43 70 stenotic 75-99% 4.3 monophasic monophasic + + + + + +--------+-----+ SFA PRX 0 occluded + + + + + +--------+-----+ SFA PRX MID 0 occluded + + + + + +--------+-----+ SFA MID 0 occluded + + + + + +--------+-----+ SFA MID DST 64 monophasic + + + + + +--------+-----+ SFA DST 13 monophasic + + + + + +--------+-----+ PORTER PRX 31 monophasic + + + + + +--------+-----+ PORTER DST 18 monophasic + + + + + +--------+-----+ INSTRUCTOR KINDERGARTEN DST 10 monophasic + + + + + +--------+-----+ SONIA DST 0 occluded + + + + + +--------+-----+ DPA 0 occluded + + + + + +--------+-----+ + + + + + +--------+-----+ LEFT Velocity cm/s PRE POST Phasicity Stenosis Ratio Velocity cm/s Velocity Phasicity cm/s Phasicity + + + + + +--------+-----+ INDUSTRIAL SOCIOLOGIST PRX 91 multiphasic + + + + + +--------+-----+ INDUSTRIAL SOCIOLOGIST DST 222 91 111 stenotic 50-74% 2.4 multiphasic multiphasic + + + + + +--------+-----+ PFA 77 multiphasic + + + + + +--------+-----+ SFA PRX 100 multiphasic + + + + + +--------+-----+ SFA PRX 43 monophasic MID + + + + + +--------+-----+ SFA MID 66 multiphasic + + + + + +--------+-----+ SFA DST 68 multiphasic + + + + + +--------+-----+ PORTER PRX 27 multiphasic + + + + + +--------+-----+ PORTER DST 23 monophasic + + + + + +--------+-----+ INSTRUCTOR KINDERGARTEN DST 22 monophasic + + + + + +--------+-----+ SONIA DST 0 occluded + + + + + +--------+-----+ DPA 0 occluded + + + + + +--------+-----+ Criteria: Stenosis V. Ratio Mild <50% <2.0 Moderate 50-74% > or = 2.0 Severe 75-99% > or = 4.0 Occluded 100% no detectable flow Pressures +-----+ +--------+ +-----+ RIGHT (mmHg) LEFT (mmHg) +-----+ +--------+ +-----+ Index 132 Brachial 130 Index +-----+ +--------+ +-----+ 0.58 76 INSTRUCTOR KINDERGARTEN 98 0.74 +-----+ +--------+ +-----+ 0.00 0 DPA 0 0.00 +-----+ +--------+ +-----+ Get Mondragon MD. Electronically signed on 09/10/2024 6:15:38 PM This study was performed and interpreted by a service accredited by theIntersocietal Accreditation Commission (IAC/Vascular),[email or web address] Report generated by [employer]. Final us Janice Clarence Paris MD [employer] l Result * SCAN-EYE EXAM (07/30/2024 12:00 AM VP TALENT MANAGEMENT) us Scanner OTHER Final Result * SCAN-CT INTERPRETATION (07/15/2024 12:00 AM VP TALENT MANAGEMENT) Only the most recent of3 resultswithin the time period is included. Anatomical Region Laterality Modality Other us Scanner OTHER Final Result from Last 3 Months Insurance MEDICARE PART A HB ONLY [place] HB ONLY MEDICARE PART B HB ONLY HP MEDICARE PB ONLY MEDICARE PART A HB ONLY MEDICARE PART B HB ONLY [place] HB ONLY [place]IV[place]EX [place]OTT [id number] Advance Directives Documents on File Type Date Recorded Patient Dynamite Cartridge Crimper Expl anation Healthcare Directive 03/10/2017 2:43 PM [facility] * Full Code (Latest Code Status on File) Date Activated Date Inactivated Comments 04/05/2016 7:52 AM 04/06/2016 2:30 AM * Full Code Date Activated Date Inactivated Comments 06/13/2014 9:21 AM 06/14/2014 2:06 PM * Full Code Date Activated Date Inactivated Comments 03/05/2013 10:16 AM 03/06/2013 2:26 AM * Full Code Date Activated Date Inactivated Comments 09/22/2010 11:11 AM 09/22/2010 8:47 PM * Full Code Date Activated Date Inactivated Comments 09/28/2007 12:15 AM 10/03/2007 3:22 PM Care Teams Marina Manager Relationship Specialty Start Date End Date Geeta Manning MD [address] [place] [address] PCP - General Family Practice 12/14/22 Aura Carpenter MD Family Practice Family Practice 01/04/12 Adelaida Whaley AuD Audiology 10/24/12 Yamile Castellon, Rena [address] [place] [id number] Pharmacist Medication Management Pharmacology 09/12/24 09/12/27
[2024-10-15 13:54] VITALS: BP 94/62; PULSE 79; RESP 18; TEMP 36.3; O2SAT 97; BMI 26.8
[2024-10-15 14:55] LABS: PCR FLU A Negative PCR FLU A (Negative); PCR FLU B Negative PCR FLU B (Negative); PCR RSV Negative PCR RSV (Negative); SARS PCR* Negative SARS-CoV-2 (Negative)
--- NOTE | 2024-10-15 15:08 | ED_ITS ---
HPI - General Adult General Chief complaint: Cough Stated complaint: Cough, shortess of breath Time Seen by Provider: 10/15/24 13:47 History of Present Illness HPI narrative: This 84-year-old male comes in with his and bothlooking to be seen and evaluated for upper respiratory symptoms that began yesterday morning. He reports a cough and some nasal congestion. He does not have any shortness of breath and does not report a fever. He arrives here with normal vital signs. Related Data Home Medications ?Medication ?Instructions ?Recorded ?Confirmed acetaminophen 650 mg 650 mg PO DAILY 11/28/23 01/19/24 tablet,extended release amlodipine 5 mg tablet 5 mg PO DAILY 11/28/23 01/19/24 aspirin 325 mg tablet,delayed 325 mg PO DAILY 11/28/23 01/19/24 release bupropion HCl 300 mg 24 hr tablet, 300 mg PO DAILY 11/28/23 01/19/24 extended release cholecalciferol (vitamin D3) 50 100 mcg PO DAILY 11/28/23 01/19/24 mcg (2,000 unit) capsule dipyridamole 50 mg tablet 50 mg PO BID 11/28/23 01/19/24 escitalopram oxalate 20 mg tablet 20 mg PO QAM 11/28/23 01/19/24 famotidine 20 mg tablet 20 mg PO BID 11/28/23 01/19/24 gabapentin 300 mg capsule 300 mg PO 11/28/23 memantine 10 mg tablet 10 mg PO BID 11/28/23 01/19/24 montelukast 10 mg tablet 10 mg PO QPM 11/28/23 01/19/24 omeprazole 40 mg capsule,delayed 40 mg PO DAILY 11/28/23 01/19/24 release primidone 50 mg tablet 50 mg PO QPM 11/28/23 01/19/24 simvastatin 40 mg tablet 40 mg PO QPM 11/28/23 01/19/24 tamsulosin 0.4 mg capsule 0.8 mg PO DAILY 11/28/23 01/19/24 Previous Rx's ?Medication ?Instructions ?Recorded benzonatate 200 mg capsule 200 mg PO BID PRN cough #10 caps 07/05/23 Allergies Allergy/AdvReac Type Severity Reaction Status Date / Time adhesive tape Allergy Blister Verified 11/28/23 10:24 diatrizoate meglumine Allergy angioedema Verified 11/28/23 10:24 venom-wasp Allergy Hives Verified 11/28/23 10:24 Beta-Blockers AdvReac Cough Verified 11/28/23 10:24 (Beta-Adrenergic Bloc digoxin AdvReac bipolar Verified 11/28/23 10:24 donepezil (From Aricept) AdvReac confusion Verified 11/28/23 10:24 lisinopril AdvReac Cough Verified 11/28/23 10:24 losartan (From Cozaar) AdvReac Verified 11/28/23 10:24 terazosin AdvReac Dizziness Verified 11/28/23 10:24 Review of Systems Status of ROS: Reports: 10 or more systems reviewed and unremarkable except as noted in History and below Narrative: Constitutional: No fevers, no weight gain or loss. Eyes: No discharge. No vision changes. HENT: No sore throat, no ear pain. Cardiovascular: No chest pain, no palpitations. Respiratory: No shortness of breath, no wheezes . He reports a cough. Gastrointestinal: No abdominal pain, no vomiting, no diarrhea. Genitourinary: No dysuria, no hematuria. Musculoskeletal: Normal range of motion. Skin: No rashes, no pruritis. Neurological: No dizziness, weakness, sensory change, speech change. Endo/Heme/Allergies: No bruising or bleeding. No polydipsia. Pysch: no suicidality, no anxiety, no insomnia. All other systems reviewed and are negative. [facility] Social History Smoking Status: Former smoker How often do you have a drink containing alcohol: never How often do you have six or more drinks on one occasion: Never AUDIT-C Alcohol total score: 0 Non-prescribed substance use: denies use service: No Exam Narrative: Exam Narrative: Constitutional: Well-developed, well-nourished, no acute distress. HEENT: Normocephalic, atraumatic. Neck: Normal range of motion. Nontender. Supple. Heart: Regular. No murmurs. Normal rate. Intact distal pulses. Lungs: Clear to auscultation. No chest discomfort. No wheezes, rhonchi, or rales. Abdomen: Normal bowel sounds. Nontender. No rebound tenderness. Genitalia: Deferred. Back: No midline tenderness. Normal range of motion. Extremities: Normal range of motion. No injury. Skin: Intact. No rash. Warm. No erythema or pallor. Neurologic: No altered sensation. No weakness. Alert and oriented. Psychiatric: No suicidality. No anxiety or depression. No insomnia. Nursing notes and vitals signs are reviewed. Const: Vital Signs, click to edit/add: Vital Signs - 24 hr 10/15/24 13:54 Temperature 97.3 F L Pulse Rate [Pulse Oximeter] 79 Respiratory Rate 18 Blood Pressure [Ri ght Upper Arm] 94/62 Pulse Oximetry 97 Oxygen Delivery Me thod Room Air Course Vital Signs Vital signs: Initial Vital Signs Temperature 97.3 F L 10/15/24 13:54 Temperature Source Temporal Artery Scan 10/15/24 13:54 Pulse Rate 79 10/15/24 13:54 Respiratory Rate 18 10/15/24 13:54 Blood Pressure 94/62 10/15/24 13:54 Blood Pressure Mean 72 10/15/24 13:54 Pulse Oximetry 97 10/15/24 13:54 Oxygen Delivery Method Room Air 10/15/24 13:54 Vital Signs Temperature 97.3 F L 10/15/24 13:54 Pulse Rate 79 10/15/24 13:54 Respiratory Rate 18 10/15/24 13:54 Blood Pressure 94/62 10/15/24 13:54 Pulse Oximetry 97 10/15/24 13:54 Oxygen Delivery Method Room Air 10/15/24 13:54 Temperature 97.3 F L 10/15/24 13:54 Pulse Rate 79 10/15/24 13:54 Respiratory Rate 18 10/15/24 13:54 Blood Pressure 94/62 10/15/24 13:54 Pulse Oximetry 97 10/15/24 13:54 Oxygen Delivery Method Room Air 10/15/24 13:54 Medical Decision Making MDM Narrative Medical decision making narrative: This patient has upper respiratory symptoms that began yesterday morning. Nasal pharyngeal swab is obtained and returns negative for viruses tested. His vital signs are normal as is his exam. He did receive an oral dose of dexamethasone and is encouraged to use [id number] medicines as needed and directed and return if worsening symptoms occur. Lab Data Labs: Lab Results 10/15/24 Range/Units 14:00 SARS-CoV-2 (PCR) Negative SARS-CoV-2 (Negative) Influenza Type A (PCR) Negative PCR FLU A (Negative) Influenza Type B (PCR) Negative PCR FLU B (Negative) RSV (PCR) Negative PCR RSV (Negative) Discharge Plan Discharge Clinical Impression: Acute upper respiratory infection Patient Disposition: Home, Self-Care Condition: Stable Additional Instructions: use [id number] medicines as needed and directed. Follow up with MD return if worsening symptoms occur. Prescriptions: No Action benzonatate 200 mg capsule 200 mg PO BID PRN (Reason: cough) Qty: 10 0RF acetaminophen 650 mg tablet extended release 650 mg PO DAILY famotidine 20 mg tablet 20 mg PO BID aspirin 325 mg tablet,delayed release (DR/EC) 325 mg PO DAILY gabapentin 300 mg capsule 300 mg PO Patient Comments: one capsule y mouth every morning and noon, 2 caps at HS dipyridamole 50 mg tablet 50 mg PO BID escitalopram oxalate 20 mg tablet 20 mg PO QAM bupropion HCl 300 mg tablet extended release 24 hr 300 mg PO DAILY memantine 10 mg tablet 10 mg PO BID cholecalciferol (vitamin D3) 50 mcg (2,000 unit) capsule 100 mcg PO DAILY primidone 50 mg tablet 50 mg PO QPM amlodipine 5 mg tablet 5 mg PO DAILY omeprazole 40 mg capsule,delayed release(DR/EC) 40 mg PO DAILY simvastatin 40 mg tablet 40 mg PO QPM tamsulosin 0.4 mg capsule 0.8 mg PO DAILY montelukast 10 mg tablet 10 mg PO QPM Follow Up/Referrals: Geeta Manning MD [Primary Care Provider] - Stand Alone Forms: [employer] Info Instructions
--- OUTSIDE RECORDS SUMMARY | 2024-10-15 15:15 | XMS_ITS | Clinical Summary ---
Author Organization [facility] Address [place], [place] [address] Care Team Providers Care Tip Cementer Name Role Phone Aura Carpenter MD Unavailable Adelaida Whaley Unavailable [phone] Geeta Manning MD Primary Care Provide [...] Type Department Care Team Description 10/11/2024 Refill [facility] [address] [place] [address] Geeta Manning MD Refill Request (Fluticasone (50 Mcg Per Actuation) Nasal) 10/08/2024 11:00 AM MECHANICAL ENGINEERING DRAFTSPERSON Ancillary Procedure [address] [place] [address] 10/08/2024 Travel 09/18/2024 11:20 AM MECHANICAL ENGINEERING DRAFTSPERSON Office Visit [address] [place] [address] Geeta Manning MD Follow Up (Discuss results and medication./Dr. Paris 09/13/24) 09/18/2024 Travel 09/13/2024 10:30 AM MECHANICAL ENGINEERING DRAFTSPERSON Office Visit [facility] [address] [place] [address] Janice Paris MD Follow Up (PAD ) 09/12/2024 11:30 AM MECHANICAL ENGINEERING DRAFTSPERSON Orders Only [address] [place] [address] Lab, [facility] 09/12/2024 10:30 AM MECHANICAL ENGINEERING DRAFTSPERSON Pharmacist Medication Management [address] [place] [address] Yamile Castellon PharmD Pharmacist Medication Management (CMR initial - provider referral - in-clinic) 09/12/2024 Travel 09/10/2024 10:00 AM MECHANICAL ENGINEERING DRAFTSPERSON Ancillary Procedure [facility] [address] [place] [address] 09/10/2024 Travel 08/16/2024 Patient Outreach [facility] Care Management - Advanced Care Team [address] [place] [address] Lolly Lanza Medication Management (COMPREHENSIVE MEDICATION REVIEW - PROVIDER REFERRAL - unsure if covered) 08/14/2024 10:55 AM MECHANICAL ENGINEERING DRAFTSPERSON Office Visit [facility] [address] [place] [address] Geeta Manning MD Medicare ANNUAL (subsequent) Visit (84 yo Male/Cough with a little phelm /Concerned about new diagnosis from Dr. Walter/Dr. 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/Nose still runs) 07/31/2024 Travel 07/30/2024 Orders Only [facility] Scanner 1 scan: (1-Ord) [facility] 07/15/2024 Orders Only [facility] Scanner 1 scan: (1-Ord) [facility], CT ANGIO CHEST PE PROTOCOL, 07/15/2024 07/15/2024 Orders Only [facility] Scanner 1 scan: (1-Ord) [facility], CT CHEST ABDOMEN PELV WO CON, 07/15/2024 07/15/2024 Orders Only [facility] Scanner 1 scan: (1-Ord) [facility], CT HEAD/BRAIN WO CON, 07/15/2024 from Last 3 Months Immunizations Name Administration Dates Next Due AMB Influenza, IIV4 PF (=>6 mos Flulaval,Fluzone Fluarix)(Flu Clinic Only) 06/13/2019 COVID-19 VACCINE SPIKEVAX (M ODERNA 50MCG/0.5ML) 12YO+ PFS 11/15/2023 COVID-19 vaccine (Pfizer-Bio NTech 30mcg/0.3mL) 12YO+ BIVALENT PF, MDV 05/19/2022 COVID-19 vaccine (Pfizer-Bio NTech 30mcg/0.3mL) 12YO+ JOSE CRUZ-SUCROSE PF, MDV 12/07/2021 COVID-19 vaccine (Cardia-Bio NTech 30mcg/0.3mL) PF, MDV 11/04/2020,10/14/2020 Influenza A (H1N1), Inactiva melissa (Age >=3 Years) 09/03/2009 Influenza, High-dose Quadriv [...] on file Legal Sex Male 6:36 AM MECHANICAL ENGINEERING DRAFTSPERSON Gender Identity Not on file Sexual Orientation Not on file 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 Not on file Not on file Not on shankar [employer] Obstetrics History Last Filed Vital Signs Vital Sign Reading Time Taken Comments Blood Pressure 115/71 09/18/2024 12:16 PM MECHANICAL ENGINEERING DRAFTSPERSON Pulse 75 09/18/2024 12:16 PM MECHANICAL ENGINEERING DRAFTSPERSON Temperature 36.6 C (97.9 F) 04/03/2020 2:13 PM CDT Respiratory Rate 20 03/17/2020 2:56 PM CDT Oxygen Saturation 98% 09/18/2024 12:16 PM MECHANICAL ENGINEERING DRAFTSPERSON Inhaled Oxygen Concentration - - Weight 93.4 kg (206 lb) 09/18/2024 12:16 PM MECHANICAL ENGINEERING DRAFTSPERSON Height 179.1 cm (5' 10.5) 12/27/2023 1:32 PM CD T Body Mass Index 29.14 12/27/2023 1:32 PM CDT Plan of Treatment Upcoming Encounters Date Type Department Care Team (Late st Contact Info) Description 10/17/2024 11:00 AM MECHANICAL ENGINEERING DRAFTSPERSON Office Visit [facility] [address] [place] [address] Clark Simmons DPM [address] [place] [address] 12/11/2024 Cardiac Device Check [facility] [phone] 12/18/2024 10:55 AM CDT Office Visit [facility] [address] [place] [address] Geeta Manning MD [address] [place] [address] Health Maintenance Due Date Last Done Comments [...] 05/25/2016, 04/24/2008 Medical Devices Implanted Type Area Hostage Negotiator Device Identifier Shelf Expiration Date Model / Serial / Lot Dual Chamber Pacemaker Implanted:05/29 by Jacques Guthrie MD (Quantity not on file) Standard Pacemaker Medtronic ADAPTA [id number] / [id number] / Procedures Procedure Name Priority Date/Time Associated Diagnosis Comments CT CHEST WO Routine 10/08/2024 11:14 AM MECHANICAL ENGINEERING DRAFTSPERSON Lung nodule LIPID PANEL W REFLEX MEASURED LDL Routine 09/12/2024 12:12 PM MECHANICAL ENGINEERING DRAFTSPERSON Mixed hyperlipidemia BASIC METABOLIC PANEL Routine 09/12/2024 12:12 PM MECHANICAL ENGINEERING DRAFTSPERSON Essential hypertension PSA TOTAL Routine 09/12/2024 12:12 PM MECHANICAL ENGINEERING DRAFTSPERSON Prostate cancer screening US ARTERIAL LOWER EXTREMITY W AZEB BILATERAL Routine 09/10/2024 11:09 AM MECHANICAL ENGINEERING DRAFTSPERSON PAD (peripheral artery disease) (HC) SCAN-EYE EXAM 07/30/2024 12:00 AM MECHANICAL ENGINEERING DRAFTSPERSON SCAN-CT INTERPRETATION 4 12:00 AM MECHANICAL ENGINEERING DRAFTSPERSON SCAN-CT INTERPRETATION 4 12:00 AM MECHANICAL ENGINEERING DRAFTSPERSON SCAN-CT INTERPRETATION 4 12:00 AM MECHANICAL ENGINEERING DRAFTSPERSON from Last 3 Months Results * CT CHEST WO (10/08/2024 11:14 AM MECHANICAL ENGINEERING DRAFTSPERSON) Anatomical Region Laterality Modality CHEST, THORAX, HEART Computed To mography 10/08/2024 1:19 PM MECHANICAL ENGINEERING DRAFTSPERSON Narrative 10/08/2024 1:19 PM MECHANICAL ENGINEERING DRAFTSPERSON For Patients: As a result of the [...] W REFLEX MEASURED LDL (09/12/2024 12:12 PM MECHANICAL ENGINEERING DRAFTSPERSON) CHOLESTEROL, TOTAL 144 <200 mg/dL [facility] HDL CHOLESTEROL 52 > OR = 40 mg/dL [facility] TRIGLYCERIDES 121 <150 mg/dL [facility] LDL-CHOLESTEROL 72 mg/dL (calc) [facility] Comment: Reference range: <100 Desirable range <100 mg/dL for primary prevention; <70 mg/dL for patients with CHD or diabetic patients with > or = 2 CHD risk factors. LDL-C is now calculated using the Chris calculation, which is a validated novel method providing better accuracy than the Friedewald equation in the estimation of LDL-C. Milton SS et al. MILENA. 2013;310(19): 1376-2259 (http://education.[employer]/faq/KFZ405) CHOL/HDLC RATIO 2.8 <5.0 (calc) [facility] Hidalgoe NON HDL CHOLESTEROL 92 <130 mg/dL (calc) [facility] alexandershalonda Jimmy Comment: For patients with diabetes plus 1 major ASCVD risk factor, treating to a non-HDL-C goal of <100 mg/dL (LDL-C of <70 mg/dL) is considered a therapeutic option. Blood BLOOD SPECIMEN / Unknown 09/12/2024 12:12 PM MECHANICAL ENGINEERING DRAFTSPERSON 09/12/2024 12:13 PM MECHANICAL ENGINEERING DRAFTSPERSON us Geeta Manning MD CHEMISTRY Final Result [facility] [address] [place] [address], [facility] [address] [place] [address] * PSA TOTAL (09/12/2024 12:12 PM MECHANICAL ENGINEERING DRAFTSPERSON) PSA, TOTAL 0.98 < OR = 4.00 ng/mL [facility] Marquez Comment: The total PSA value [...] BLOOD SPECIMEN / Unknown 09/12/2024 12:12 PM MECHANICAL ENGINEERING DRAFTSPERSON 09/12/2024 12:13 PM MECHANICAL ENGINEERING DRAFTSPERSON Geeta Manning MD CHEMISTRY Final Result [facility] [address] [place] [address], [facility] [address] [place] [address] * BASIC METABOLIC PANEL (09/12/2024 12:12 PM MECHANICAL ENGINEERING DRAFTSPERSON) GLUCOSE 86 65 - 99 mg/dL [facility] Comment: Fasting reference interval UREA [...] BLOOD SPECIMEN / Unknown 09/12/2024 12:12 PM MECHANICAL ENGINEERING DRAFTSPERSON 09/12/2024 12:13 PM MECHANICAL ENGINEERING DRAFTSPERSON Geeta Manning MD CHEMISTRY Final Result [facility] [address] [place] [address], [facility] [address] [place] [address] * US ARTERIAL LOWER EXTREMITY W AZEB BILATERAL (09/10/2024 11:09 AM MECHANICAL ENGINEERING DRAFTSPERSON) Anatomical Region Laterality Modality LEGS Ultrasound 09/10/2024 10:0 4 AM MECHANICAL ENGINEERING DRAFTSPERSON Narrative 09/10/2024 6:15 PM MECHANICAL ENGINEERING DRAFTSPERSON VASCULAR ULTRASOUND REPORT MEKHI MCCABE : 1940 Study Date: 09/10/2024 10:04:26 AM Age: 84 years Tech: RANDA Gender: M Referring MD: JANICE PARIS Site: [facility] Study performed: Lower extremity duplex US, [...] Phasicity + + + + + +--------+-----+ [employer] HCM CONSULTANT PRX 43 monophasic + + + + + +--------+-----+ [place] HCM CONSULTANT DST 98 monophasic + + + + [...] monophasic + + + + + +--------+-----+ TAR CHASER DST 10 monophasic + + + + + +--------+-----+ SONIA DST 0 occluded + + + + + +--------+-----+ DPA 0 occluded + + + + + +--------+-----+ + + + + + +--------+-----+ LEFT Velocity cm/s PRE POST Phasicity Stenosis Ratio Velocity cm/s Velocity Phasicity cm/s Phasicity + + + + + +--------+-----+ [employer] HCM CONSULTANT PRX 91 multiphasic + + + + + +--------+-----+ [employer] HCM CONSULTANT DST 222 91 111 stenotic 50-74% 2.4 [...] monophasic + + + + + +--------+-----+ TAR CHASER DST 22 monophasic + + + + [...] 130 Index +-----+ +--------+ +-----+ 0.58 76 TAR CHASER 98 0.74 +-----+ +--------+ +-----+ 0.00 0 DPA 0 0.00 +-----+ +--------+ +-----+ Get Mondragon MD. Electronically signed on 09/10/2024 6:15:38 PM This study was performed and interpreted by a service accredited by the Intersocietal Accreditation Commission (IAC/Vascular), [email or web address] Report generated by [employer]. Final Procedure Note Get Mondragon MD - 09/10/2024 VASCULAR ULTRASOUND REPORT MEKHI MCCABE : 1940 Study Date: 09/10/2024 10:04:26 AM Age: 84 years Tech: BSG Gender: M Referring MD: JANICE PARIS Site: [facility] Study performed: Lower extremity duplex US, [...] Phasicity + + + + + +--------+-----+ [employer] HCM CONSULTANT PRX 43 monophasic + + + + + +--------+-----+ [employer] HCM CONSULTANT DST 98 monophasic + + + + [...] monophasic + + + + + +--------+-----+ TAR CHASER DST 10 monophasic + + + + + +--------+-----+ SONIA DST 0 occluded + + + + + +--------+-----+ DPA 0 occluded + + + + + +--------+-----+ + + + + + +--------+-----+ LEFT Velocity cm/s PRE POST Phasicity Stenosis Ratio Velocity cm/s Velocity Phasicity cm/s Phasicity + + + + + +--------+-----+ [employer] HCM CONSULTANT PRX 91 multiphasic + + + + + +--------+-----+ [employer] HCM CONSULTANT DST 222 91 111 stenotic 50-74% 2.4 [...] monophasic + + + + + +--------+-----+ TAR CHASER DST 22 monophasic + + + + [...] 130 Index +-----+ +--------+ +-----+ 0.58 76 TAR CHASER 98 0.74 +-----+ +--------+ +-----+ 0.00 0 DPA 0 0.00 +-----+ +--------+ +-----+ Get Mondragon MD. Electronically signed on 09/10/2024 6:15:38 PM This study was performed and interpreted by a service accredited by theIntersocietal Accreditation Commission (IAC/Vascular),[email or web address] Report generated by [employer]. Final us Janice Clarence Paris MD [facility] [employer] l Result * SCAN-EYE EXAM (07/30/2024 12:00 AM MECHANICAL ENGINEERING DRAFTSPERSON) us Scanner OTHER Final Result * SCAN-CT INTERPRETATION (07/15/2024 12:00 AM MECHANICAL ENGINEERING DRAFTSPERSON) Only the most recent of3 resultswithin the time period is included. Anatomical Region Laterality Modality Other us Scanner OTHER Final Result from Last 3 Months Insurance MEDICARE PART A HB ONLY [place] HB ONLY MEDICARE PART B HB ONLY [place] MEDICARE PB ONLY MEDICARE PART A HB ONLY MEDICARE PART B HB ONLY [place] HB ONLY ALIVIAALEX SCOTT [id number] Advance Directives Documents on File Type Date Recorded Patient Neon Sign Erector Expl anation Healthcare Directive 03/10/2017 2:43 PM [facility] * Full Code (Latest Code Status [...] 12:15 AM 10/03/2007 3:22 PM Care Teams Tip Cementer Relationship Specialty Start Date End Date Geeta Manning MD [address] [place] [address] PCP - General Family Practice 12/14/22 Aura Carpenter MD Family Practice Family Practice 01/04/12 Adelaida Whaley AuD Audiology 10/24/12 Yamile Castellon, Rena [address] [place] [phone] Pharmacist Medication Management Pharmacology 09/12/24 09/12/27
[2024-10-15] MEDS: dexAMETHasone 10 MG/ML inj PO (15:18)
== END 2024-10-15 15:30 | disposition home or self-care (01) ==
PROVIDERS: Emergency Provider Emergency Medicine Emergency Medical Services; PCP Family Medicine
DX: J06.9 Acute upper respiratory infection, unspecified (principal)
CPT/HCPCS: 87631; 99283; 99284; J1100